=== PATIENT | male | born 1960 | race Caucasian/White ===

== ENCOUNTER 2017-04-24 23:21 | Inpatient (IN) | payer BC, OTHER ==
[2017-04-24] MEDS ORDERED: Ketorolac 30 MG/ML SDV IVPUSH ONE (23:36)
[2017-04-24] MEDS ORDERED: Sodium Chloride 0.9% 1,000 ML IV ONE (23:36)
[2017-04-24] MEDS ORDERED: Sodium Chloride 0.9% 10 ML Syringe FLUSH PRN (23:36)
[2017-04-24] MEDS ORDERED: Ondansetron 4 MG/2 ML SDV IVPUSH ONE (23:36)
[2017-04-24] MEDS ORDERED: Acetaminophen 325 MG Tab PO ONE (23:36)
[2017-04-24] MEDS ORDERED: Sodium Chloride 0.9% 2.5 ML Syringe FLUSH PRN (23:36)
--- NOTE | 2017-04-24 23:40 | EDM.PDOC ---
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 The patient states he has on and off loose stools but the diarrhea is more watery than usual and it's not black or bloody. The patient did not know that he had a fever and has had no chest pain shortness of breath flank pain or urinary issues. The patient states that he felt really run down this morning and that he thought he might be dehydrated so he was pushing fluids all day and was able to tolerate them until a proximally 7 PM when he started having vomiting which he has not been able to stop. The diarrhea started soon thereafter and the pain that he is describing is a deep aching pain on the left side of his abdomen in the mid left abdomen and then radiates. He feels slightly bloated and gassy. He does not take any [id number] medications for his discomfort or the nausea vomiting and diarrhea. He's had no recent travel and 8 no new foods. He has not had any recent antibiotic use. 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 Past medical history: As per history of present illness and as reviewed below otherwise noncontributory. Surgical history: As per history of present illness and as reviewed below otherwise noncontributory. Social history: No reported history of drug or alcohol abuse. Family history: As per history of present illness and as reviewed below otherwise noncontributory. Physical exam: Gen.: Well-developed thin man who is nontoxic and speaks clearly and easily in the ED and moves easily without distress. Vital signs were noted by me. HEENT: Atraumatic, normocephalic, pupils reactive, negative for conjunctival pallor or scleral icterus, mucous membranes moist, throat clear, neck supple, nontender, trachea midline. Lungs: Clear to auscultation, breath sounds equal bilaterally, chest nontender. Heart: S1S2, regular, negative for clicks, rubs, or JVD. Abdomen: Soft, nondistended, nontender. There is tympany on percussion of the abdomen but is not tender on percussion and he has some mild left-sided abdominal pain without rebound or guarding and there are no masses. Negative for masses or hepatosplenomegaly. Negative for costovertebral tenderness. A midline abdominal incision is seen which is well-healed and there is no defects appreciated Pelvis: Stable nontender. Genitourinary: Deferred. Rectal: Deferred. Extremities: Atraumatic, negative for cords or calf pain. Neurovascular unremarkable. Neuro: Awake, alert, oriented. Cranial nerves II through XII unremarkable. Cerebellum unremarkable. Motor and sensory unremarkable throughout. Exam nonfocal. Diagnostics: CBC CMP amylase lipase lactic acid UA urine culture blood cultures CT scan of the abdomen and pelvis Therapeutics: IV fluids Toradol Zofran Tylenol 0130: I discussed all testing results with the patient and with our hospitalist Dr. Alexandra. He will be admitting the patient for his colitis and duodenitis in light of the elevated WBC count and his history of splenectomy. Patient currently is afebrile and feeling much improved but he is aware of the need for IV antibiotics and we will be hanging a dose of vancomycin Levaquin and Flagyl here in the ER. These antibiotic choices were discussed with the hospitalist. Impression: Colitis, inflammatory versus infectious, duodenitis dehydration and history of asplenism Definitive disposition and diagnosis as appropriate pending reevaluation and review of above. Left Middle Abdomen Pain Score (Numeric/FACES): 7 - Related Data Allergies Allergy/AdvReac Type Severity Reaction Status Date / Time Penicillins Allergy Rash Verified 04/24/17 23:31 Home Meds: Home Meds . [No Known Home Meds] 11/07/14 [History] Past Medical History Respiratory History: Reports: PE, Other (See Below) Other Respiratory History: "lots of scar tissue" Gastrointestinal History: Reports: GI Bleed Musculoskeletal History: Reports: Fracture Social & Family History - Family History Family Medical History: Noncontributory - Tobacco Use Smoking Status *Q: Never Smoker - Alcohol Use Days Per Week of Alcohol Use: 0 - Recreational Drug Use Recreational Drug Use: No ED ROS GENERAL - Review of Systems Review Of Systems: ROS reveals no pertinent complaints other than HPI. ED EXAM, GENERAL - Physical Exam Exam: See Below (See dictation) Course - Vital Signs Last Recorded V/S: Last Vital Signs Temp 37.6 C 04/25/17 01:23 Pulse 74 04/25/17 01:23 Resp 14 04/25/17 01:23 BP 112/69 04/25/17 01:23 Pulse Ox 95 04/25/17 01:23 - Orders/Labs/Meds Orders: Active Orders 24 hr Category Date Time Status Patient Status [ADT] Stat ADT 04/25/17 01:36 Ordered Abdomen Pelvis w Cont [CT] Stat Exams 04/24/17 23:36 Taken CULTURE BLOOD [BC] Stat Lab 04/24/17 23:50 Received CULTURE BLOOD [BC] Stat Lab 04/24/17 23:58 Received CULTURE URINE [RM] Stat Lab 04/25/17 00:32 Received Levofloxacin/Dextrose 5%-Water [Levaquin in D5W 500 MG/ Med 04/25/17 01:35 Ordered 100 ML] 500 mg Premix Bag 1 bag IV ONETIME Sodium Chloride 0.9% [Saline Flush] Med 04/24/17 23:36 Active 10 ml FLUSH ASDIRECTED PRN Sodium Chloride 0.9% [Saline Flush] Med 04/24/17 23:36 Active 2.5 ml FLUSH ASDIRECTED PRN Vancomycin [Vancocin] 1 gm Med 04/25/17 01:35 Ordered Sodium Chloride 0.9% [Normal Saline] 250 ml IV ONETIME metroNIDAZOLE/Normal Saline [Flagyl 500 MG in NS 100 ML Med 04/25/17 01:35 Ordered ] 500 mg Premix Bag 1 bag IV ONETIME Blood Culture x2 Reflex Set [OM.PC] Stat Oth 04/24/17 23:36 Ordered Saline Lock Insert [OM.PC] Stat Oth 04/24/17 23:36 Ordered Medication Orders Sodium Chloride (Saline Flush) 10 ml FLUSH ASDIRECTED PRN PRN Reason: Keep Vein Open Sodium Chloride (Saline Flush) 2.5 ml FLUSH ASDIRECTED PRN PRN Reason: Keep Vein Open Labs: Laboratory Tests 04/24/17 04/24/17 04/24/17 Range/Units 23:50 23:50 23:50 WBC 14.60 H (4.0-11.0) K/uL RBC 4.37 L (4.50-5.90) M/uL Hgb 13.2 (13.0-17.0) g/dL Hct 37.4 L (38.0-50.0) % MCV 85.6 (80.0-98.0) fL MCH 30.2 (27.0-32.0) pg MCHC 35.3 (31.0-37.0) g/dL RDW Std Deviation 54.3 (28.0-62.0) fl RDW Coeff of Tawana 17 H (11.0-15.0) % Plt Count 322 (150-400) K/uL MPV 10.30 (7.40-12.00) fL Neut % (Auto) 89.9 H (48.0-80.0) % Lymph % (Auto) 4.5 L (16.0-40.0) % [place] % (Auto) 5.3 (0.0-15.0) % Eos % (Auto) 0.1 (0.0-7.0) % Baso % (Auto) 0.2 (0.0-1.5) % Neut # (Auto) 13.1 H (1.4-5.7) K/uL Lymph # (Auto) 0.7 (0.6-2.4) K/uL [place] # (Auto) 0.8 (0.0-0.8) K/uL Eos # (Auto) 0.0 (0.0-0.7) K/uL Baso # (Auto) 0.0 (0.0-0.1) K/uL Nucleated RBC % 0.0 /100WBC Nucleated RBCs # 0 K/uL Lactate 1.3 (0.20-2.00) mmol/L Sodium 139 (136-146) mmol/L Potassium 3.5 (3.5-5.1) mmol/L Chloride 110 (98-110) mmol/L Carbon Dioxide 21 (21-31) mmol/L BUN 18 (6.0-23.0) mg/dL Creatinine 0.9 (0.6-1.5) mg/dL Est Cr Clr Drug Dosing 103.57 mL/min Estimated GFR (MDRD) > 60.0 ml/min Glucose 117 H (60-110) mg/dL Calcium 8.5 L (8.8-10.8) mg/dL Total Bilirubin 1.5 (0.1-1.5) mg/dL AST 61 H (5-40) IU/L ALT 54 (8-54) IU/L Alkaline Phosphatase 76 (40-150) Total Protein 7.0 (6.0-8.0) g/dL Albumin 3.8 (3.5-5.0) g/dL Globulin 3.2 (2.0-3.5) g/dL Albumin/Globulin Ratio 1.2 L (1.3-2.8) Amylase 35 (10-90) U/L Lipase 41 (7-80) U/L Urine Color Urine Appearance Urine pH (5.0-8.0) Ur Specific [place] (1.001-1.035) Urine Protein (NEGATIVE) mg/dL Urine Glucose (UA) (NEGATIVE) mg/dL Urine Ketones (NEGATIVE) mg/dL Urine Occult Blood (NEGATIVE) Urine Nitrite (NEGATIVE) Urine Bilirubin (NEGATIVE) Urine Urobilinogen (<2.0) EU/dL Ur Leukocyte Esterase (NEGATIVE) Urine RBC (0-2/HPF) Urine WBC (0-5/HPF) Ur Epithelial Cells (NONE-FEW) Urine Bacteria (NEGATIVE) 04/25/17 Range/Units 00:32 WBC (4.0-11.0) K/uL RBC (4.50-5.90) M/uL Hgb (13.0-17.0) g/dL Hct (38.0-50.0) % MCV (80.0-98.0) fL MCH (27.0-32.0) pg MCHC (31.0-37.0) g/dL RDW Std Deviation (28.0-62.0) fl RDW Coeff of Tawana (11.0-15.0) % Plt Count (150-400) K/uL MPV (7.40-12.00) fL Neut % (Auto) (48.0-80.0) % Lymph % (Auto) (16.0-40.0) % [place] % (Auto) (0.0-15.0) % Eos % (Auto) (0.0-7.0) % Baso % (Auto) (0.0-1.5) % Neut # (Auto) (1.4-5.7) K/uL Lymph # (Auto) (0.6-2.4) K/uL [place] # (Auto) (0.0-0.8) K/uL Eos # (Auto) (0.0-0.7) K/uL Baso # (Auto) (0.0-0.1) K/uL Nucleated RBC % /100WBC Nucleated RBCs # K/uL Lactate (0.20-2.00) mmol/L Sodium (136-146) mmol/L Potassium (3.5-5.1) mmol/L Chloride (98-110) mmol/L Carbon Dioxide (21-31) mmol/L BUN (6.0-23.0) mg/dL Creatinine (0.6-1.5) mg/dL Est Cr Clr Drug Dosing mL/min Estimated GFR (MDRD) ml/min Glucose (60-110) mg/dL Calcium (8.8-10.8) mg/dL Total Bilirubin (0.1-1.5) mg/dL AST (5-40) IU/L ALT (8-54) IU/L Alkaline Phosphatase (40-150) Total Protein (6.0-8.0) g/dL Albumin (3.5-5.0) g/dL Globulin (2.0-3.5) g/dL Albumin/Globulin Ratio (1.3-2.8) Amylase (10-90) U/L Lipase (7-80) U/L Urine Color YELLOW Urine Appearance CLEAR Urine pH 5.0 (5.0-8.0) Ur Specific [place] >= 1.030 (1.001-1.035) Urine Protein NEGATIVE (NEGATIVE) mg/dL Urine Glucose (UA) NEGATIVE (NEGATIVE) mg/dL Urine Ketones NEGATIVE (NEGATIVE) mg/dL Urine Occult Blood NEGATIVE (NEGATIVE) Urine Nitrite NEGATIVE (NEGATIVE) Urine Bilirubin NEGATIVE (NEGATIVE) Urine Urobilinogen 0.2 (<2.0) EU/dL Ur Leukocyte Esterase NEGATIVE (NEGATIVE) Urine RBC 0-2 (0-2/HPF) Urine WBC 0-1 (0-5/HPF) Ur Epithelial Cells RARE (NONE-FEW) Urine Bacteria RARE (NEGATIVE) Meds: Medications Generic Name Dose Route Start Last Admin Trade Name Freq PRN Reason Stop Dose Admin Sodium Chloride 10 ml 04/24/17 23:36 Saline Flush FLUSH ASDIRECTED PRN Keep Vein Open Sodium Chloride 2.5 ml 04/24/17 23:36 Saline Flush FLUSH ASDIRECTED PRN Keep Vein Open Discontinued Medications Generic Name Dose Route Start Last Admin Trade Name Magy PRN Reason Stop Dose Admin Acetaminophen 650 mg 04/24/17 23:36 04/24/17 23:54 Tylenol PO 04/24/17 23:37 650 mg NOW ONE Administration Sodium Chloride 1,000 mls @ 999 mls/hr 04/24/17 23:36 04/24/17 23:54 Normal Saline IV 04/25/17 00:36 999 mls/hr STAT ONE Administration Sodium Chloride 1,000 mls @ 999 mls/hr 04/25/17 00:30 04/25/17 00:35 Normal Saline IV 04/25/17 01:30 999 mls/hr STAT ONE Administration Iopamidol 100 ml 04/25/17 01:04 04/25/17 01:05 Isovue-370 (76%) IVPUSH 04/25/17 01:05 100 ml ONETIME STA Administration Ketorolac Tromethamine 30 mg 04/24/17 23:36 04/24/17 23:54 Toradol IVPUSH 04/24/17 23:37 30 mg ONETIME ONE Administration Ondansetron HCl 4 mg 04/24/17 23:36 04/24/17 23:54 Zofran IVPUSH 04/24/17 23:37 4 mg ONETIME ONE Administration Departure - Departure Time of Disposition: 01:39 Disposition: Admitted As Inpatient 67 Condition: Good Clinical Impression: Colitis, Asplenia - Discharge Information Forms: ED Department Discharge - My Orders Last 24 Hours: My Active Orders 04/24/17 23:36 Abdomen Pelvis w Cont [CT] Stat Sodium Chloride 0.9% [Saline Flush] 10 ml FLUSH ASDIRECTED PRN Sodium Chloride 0.9% [Saline Flush] 2.5 ml FLUSH ASDIRECTED PRN Blood Culture x2 Reflex Set [OM.PC] Stat Saline Lock Insert [OM.PC] Stat 04/24/17 23:50 CULTURE BLOOD [BC] Stat 04/24/17 23:58 CULTURE BLOOD [BC] Stat 04/25/17 00:32 CULTURE URINE [RM] Stat 04/25/17 01:35 Levofloxacin/Dextrose 5%-Water [Levaquin in D5W 500 MG/100 ML] 500 mg Premix Bag 1 bag IV ONETIME Vancomycin [Vancocin] 1 gm Sodium Chloride 0.9% [Normal Saline] 250 ml IV ONETIME metroNIDAZOLE/Normal Saline [Flagyl 500 MG in NS 100 ML] 500 mg Premix Bag 1 bag IV ONETIME 04/25/17 01:36 Patient Status [ADT] Stat - Assessment/Plan Last 24 Hours: My Active Orders 04/24/17 23:36 Abdomen Pelvis w Cont [CT] Stat Sodium Chloride 0.9% [Saline Flush] 10 ml FLUSH ASDIRECTED PRN Sodium Chloride 0.9% [Saline Flush] 2.5 ml FLUSH ASDIRECTED PRN Blood Culture x2 Reflex Set [OM.PC] Stat Saline Lock Insert [OM.PC] Stat 04/24/17 23:50 CULTURE BLOOD [BC] Stat 04/24/17 23:58 CULTURE BLOOD [BC] Stat 04/25/17 00:32 CULTURE URINE [RM] Stat 04/25/17 01:35 Levofloxacin/Dextrose 5%-Water [Levaquin in D5W 500 MG/100 ML] 500 mg Premix Bag 1 bag IV ONETIME Vancomycin [Vancocin] 1 gm Sodium Chloride 0.9% [Normal Saline] 250 ml IV ONETIME metroNIDAZOLE/Normal Saline [Flagyl 500 MG in NS 100 ML] 500 mg Premix Bag 1 bag IV ONETIME 04/25/17 01:36 Patient Status [ADT] Stat
[2017-04-25] MEDS ORDERED: Sodium Chloride 0.9% 1,000 ML IV ONE (00:30)
[2017-04-25 00:33] LABS: CHLORIDE,CL 110 mmol/L (98-110); SODIUM,NA 139 mmol/L (136-146)
[2017-04-25] MEDS ORDERED: Iopamidol 755 Mg/ML 100 ML Bottle IVPUSH STA (01:04)
[2017-04-25] MEDS ORDERED: Levofloxacin/Dextrose 5%-Water 500 MG in Premix Bag 1 BAG IV ONE (01:35)
[2017-04-25] MEDS ORDERED: metroNIDAZOLE/Normal Saline 500 MG in Premix Bag 1 BAG IV ONE (01:35)
[2017-04-25] MEDS ORDERED: Morphine 2 MG/ML Syringe IVPUSH ONE (01:49)
[2017-04-25] MEDS ORDERED: Ondansetron 4 MG/2 ML SDV IVPUSH PRN (03:39)
[2017-04-25] MEDS ORDERED: Sodium Chloride 0.9% 1,000 ML IV SCH (03:45)
[2017-04-25] MEDS: HYDROmorphone 1 MG/ML Syringe IVPUSH PRN ×5 (03:50→22:21)
[2017-04-25] MEDS: metroNIDAZOLE/Normal Saline 500 MG in Premix Bag 1 BAG IV SCH ×4 (05:01→22:22)
--- NOTE | 2017-04-25 09:30 | PCM.HP ---
H&P History of Present Illness - General Date of Service: 04/25/17 Admit Problem/Dx: Admission Diagnosis/Problem Admission Diagnosis/Problem Colitis Source of Information: Patient - History of Present Illness Initial Comments - Free Text/Narative: 57 yo with history of splectomy admitted for colitis and duodenitis. He has been episodes of n/v/d loose stool along with left sided abdominal pain at work. He felt run down and fatigued. He tried drinking fluids but felt too weak. He does not c/o of fever, chills, chest pain, palpitations or other pertiennt symptoms. He has not travelled anywhere or ate anything unusual. Left Middle Abdomen Pain Score (Numeric/FACES): 7 - Related Data Allergies/Adverse Reactions: Allergies Allergy/AdvReac Type Severity Reaction Status Date / Time Penicillins Allergy Rash Verified 04/24/17 23:31 Home Medications: Home Meds . [No Known Home Meds] 11/07/14 [History] Past Medical History HEENT History: Reports: Impaired Vision Other HEENT History: wears glasses Respiratory History: Reports: PE, Other (See Below) Other Respiratory History: "lots of scar tissue" Gastrointestinal History: Reports: GI Bleed Musculoskeletal History: Reports: Fracture Other Musculoskeletal History: right hand fracture - Infectious Disease History Infectious Disease History: Reports: Chicken Pox, Measles - Past Surgical History HEENT Surgical History: Reports: None Social & Family History - Family History Family Medical History: Noncontributory Endocrine/Metabolic: Reports: Diabetes, type II Oncologic: Reports: Colon, Other (See Below) Other Oncologic Family History: Father of colon cancer - Tobacco Use Smoking Status *Q: Never Smoker Second Hand Smoke Exposure: Yes - Caffeine Use Caffeine Use: Reports: Coffee Caffeine Use Comment: 2-3cups/day - Alcohol Use Days Per Week of Alcohol Use: 0 - Recreational Drug Use Recreational Drug Use: No H&P Review of Systems - Review of Systems: Review Of Systems: See Below General: Reports: No Symptoms HEENT: Reports: No Symptoms Pulmonary: Reports: No Symptoms Cardiovascular: Reports: No Symptoms Gastrointestinal: Reports: Abdominal Pain Genitourinary: Reports: No Symptoms Musculoskeletal: Reports: No Symptoms Skin: Reports: No Symptoms Psychiatric: Reports: No Symptoms, Suicidal Ideation Hematologic/Lymphatic: Reports: No Symptoms Exam - Exam Exam: See Below - Vital Signs Vital Signs: Last Vital Signs Temp 99.7 F 04/25/17 08:46 Pulse 77 04/25/17 08:46 Resp 18 04/25/17 08:46 BP 116/70 04/25/17 08:46 Pulse Ox 94 L 04/25/17 08:46 Weight: 82.5 kg - Exam General: Alert, Oriented HEENT: Conjunctiva Clear, EOMI, Hearing Intact Neck: Supple, Trachea Midline Lungs: Clear to Auscultation, Normal Respiratory Effort Cardiovascular: Regular Rate, Regular Rhythm Abdomen: Soft, Hyperactive Bowel Sounds Back Exam: Normal Inspection, Full Range of Motion - Patient Data Result Diagrams: 04/24/17 23:50 04/24/17 23:50 *Q Meaningful Use (ADM) - VTE *Q VTE Criteria *Q: - Stroke *Q Stroke Criteria *Q: - AMI *Q AMI Criteria *Q: Problem List Initiated/Reviewed/Updated: Yes Orders Last 24hrs: Active Orders 24 hr Category Date Time Status Patient Status [ADT] Stat ADT 04/25/17 01:36 Active Regular Diet [DIET] Diet 04/25/17 Breakfast Active CBC WITH AUTO DIFF [HEME] Routine Lab 04/26/17 05:00 Ordered CMP [COMPREHENSIVE METABOLIC PN,CMP] [CHEM] Routine Lab 04/26/17 05:00 Ordered VANCOMYCIN TROUGH [CHEM] Timed Lab 04/26/17 08:30 Ordered HYDROmorphone [Dilaudid] Med 04/25/17 03:38 Active 1 mg IVPUSH Q2H PRN Levofloxacin/Dextrose 5%-Water [Levaquin in D5W 500 MG/ Med 04/26/17 01:30 Active 100 ML] 500 mg Premix Bag 1 bag IV Q24H Ondansetron [Zofran] Med 04/25/17 03:39 Active 4 mg IVPUSH Q4H PRN Sodium Chloride 0.9% [Normal Saline] 1,000 ml Med 04/25/17 03:45 Active IV ASDIRECTED Vancomycin Pharmacy to Dose [Pharmacy to Dose - Med 04/25/17 03:45 Active Vancomycin] 1 dose .XX ASDIRECTED Vancomycin [Vancocin] 1 gm Med 04/25/17 09:30 Active Sodium Chloride 0.9% [Normal Saline] 250 ml IV Q8H metroNIDAZOLE/Normal Saline [Flagyl 500 MG in NS 100 ML Med 04/25/17 04:30 Active ] 500 mg Premix Bag 1 bag IV Q6H Medication Orders Hydromorphone HCl (Dilaudid) 1 mg IVPUSH Q2H PRN PRN Reason: Pain Last Admin: 04/25/17 03:50 Dose: 1 mg Levofloxacin/Dextrose 500 mg/ (Premix) 100 mls @ 100 mls/hr IV Q24H [facility] Metronidazole 500 mg/ Premix 100 mls @ 100 mls/hr IV Q6H [facility] Last Admin: 04/25/17 05:01 Dose: 100 mls/hr Sodium Chloride (Normal Saline) 1,000 mls @ 100 mls/hr IV ASDIRECTED [facility] Vancomycin HCl 1 gm/ Sodium (Chloride) 250 mls @ 166.667 mls/hr IV Q8H [facility] Last Admin: 04/25/17 09:19 Dose: 166.667 mls/hr Ondansetron HCl (Zofran) 4 mg IVPUSH Q4H PRN PRN Reason: Nausea/Vomiting Sodium Chloride (Saline Flush) 10 ml FLUSH ASDIRECTED PRN PRN Reason: Keep Vein Open Sodium Chloride (Saline Flush) 2.5 ml FLUSH ASDIRECTED PRN PRN Reason: Keep Vein Open Vancomycin HCl (Pharmacy To Dose - Vancomycin) 1 dose .XX ASDIRECTED [facility] Assessment/Plan Comment:: 57 yo male with history of asplenectomy admitted for colitis and duodenitis 2 blood cx positive for anerobic + gm cocci in pairs and chains. On flagyl, vanco, levaquin continue IVF
[2017-04-26] MEDS ORDERED: Levofloxacin/Dextrose 5%-Water 500 MG in Premix Bag 1 BAG IV SCH (01:30)
[2017-04-26] MEDS: HYDROmorphone 1 MG/ML Syringe IVPUSH PRN ×2 (04:34→20:25)
[2017-04-26] MEDS: metroNIDAZOLE/Normal Saline 500 MG in Premix Bag 1 BAG IV SCH ×2 (04:37→09:44)
[2017-04-26 09:05] LABS: CHLORIDE,CL 109 mmol/L (98-110); SODIUM,NA 138 mmol/L (136-146)
--- NOTE | 2017-04-26 12:50 | PCM.PN ---
- General Info Date of Service: 04/26/17 - Review of Systems Systems Review Comment:: his abdominal pain has resolved. - Patient Data Vitals - most recent: Last Vital Signs Temp 98.2 F 04/26/17 00:00 Pulse 63 04/26/17 07:53 Resp 14 04/26/17 07:53 BP 104/70 04/26/17 07:53 Pulse Ox 95 04/26/17 07:53 Weight - most recent: 82.5 kg I&O - last 24 hours: Intake & Output 04/25/17 04/26/17 04/26/17 22:59 06:59 14:59 Intake Total 750 450 100 Output Total 850 Balance -100 450 100 Lab Results last 24 hrs: Laboratory Results - last 24 hr 04/26/17 04/26/17 04/26/17 Range/Units 08:33 08:33 08:33 WBC 13.04 H (4.0-11.0) K/uL RBC 4.11 L (4.50-5.90) M/uL Hgb 12.0 L (13.0-17.0) g/dL Hct 35.6 L (38.0-50.0) % MCV 86.6 (80.0-98.0) fL MCH 29.2 (27.0-32.0) pg MCHC 33.7 (31.0-37.0) g/dL RDW Std Deviation 57.5 (28.0-62.0) fl RDW Coeff of Tawana 18 H (11.0-15.0) % Plt Count 295 (150-400) K/uL MPV 10.40 (7.40-12.00) fL Neut % (Auto) 77.5 (48.0-80.0) % Lymph % (Auto) 13.8 L (16.0-40.0) % [place] % (Auto) 6.8 (0.0-15.0) % Eos % (Auto) 1.6 (0.0-7.0) % Baso % (Auto) 0.3 (0.0-1.5) % Neut # (Auto) 10.1 H (1.4-5.7) K/uL Lymph # (Auto) 1.8 (0.6-2.4) K/uL [place] # (Auto) 0.9 H (0.0-0.8) K/uL Eos # (Auto) 0.2 (0.0-0.7) K/uL Baso # (Auto) 0.0 (0.0-0.1) K/uL Nucleated RBC % 0.0 /100WBC Nucleated RBCs # 0 K/uL Sodium 138 (136-146) mmol/L Potassium 3.8 (3.5-5.1) mmol/L Chloride 109 (98-110) mmol/L Carbon Dioxide 23 (21-31) mmol/L BUN 14 (6.0-23.0) mg/dL Creatinine 0.7 (0.6-1.5) mg/dL Est Cr Clr Drug Dosing 129.33 mL/min Estimated GFR (MDRD) > 60.0 ml/min Glucose 97 (60-110) mg/dL Calcium 7.8 L (8.8-10.8) mg/dL Total Bilirubin 0.7 (0.1-1.5) mg/dL AST 51 H (5-40) IU/L ALT 60 H (8-54) IU/L Alkaline Phosphatase 61 (40-150) Total Protein 5.6 L (6.0-8.0) g/dL Albumin 2.9 L (3.5-5.0) g/dL Globulin 2.7 (2.0-3.5) g/dL Albumin/Globulin Ratio 1.1 L (1.3-2.8) Vancomycin Trough 11.8 (5-15) ug/mL Med Orders - Current: Current Medications Hydromorphone HCl (Dilaudid) 1 mg IVPUSH Q2H PRN PRN Reason: Pain Last Admin: 04/26/17 04:34 Dose: 1 mg Sodium Chloride (Normal Saline) 1,000 mls @ 100 mls/hr IV ASDIRECTED [facility] Last Admin: 04/25/17 20:41 Dose: 100 mls/hr Vancomycin HCl 1 gm/ Sodium (Chloride) 250 mls @ 166.667 mls/hr IV Q8H [facility] Last Admin: 04/26/17 10:48 Dose: 166.667 mls/hr Ondansetron HCl (Zofran) 4 mg IVPUSH Q4H PRN PRN Reason: Nausea/Vomiting Sodium Chloride (Saline Flush) 10 ml FLUSH ASDIRECTED PRN PRN Reason: Keep Vein Open Sodium Chloride (Saline Flush) 2.5 ml FLUSH ASDIRECTED PRN PRN Reason: Keep Vein Open Vancomycin HCl (Pharmacy To Dose - Vancomycin) 1 dose .XX ASDIRECTED [facility] Discontinued Medications Acetaminophen (Tylenol) 650 mg PO NOW ONE Stop: 04/24/17 23:37 Last Admin: 04/24/17 23:54 Dose: 650 mg Sodium Chloride (Normal Saline) 1,000 mls @ 999 mls/hr IV STAT ONE Stop: 04/25/17 00:36 Last Admin: 04/24/17 23:54 Dose: 999 mls/hr Sodium Chloride (Normal Saline) 1,000 mls @ 999 mls/hr IV STAT ONE Stop: 04/25/17 01:30 Last Admin: 04/25/17 00:35 Dose: 999 mls/hr Levofloxacin/Dextrose 500 mg/ (Premix) 100 mls @ 100 mls/hr IV ONETIME ONE Stop: 04/25/17 02:34 Last Admin: 04/25/17 03:30 Dose: 100 mls/hr Vancomycin HCl 1 gm/ Sodium (Chloride) 250 mls @ 250 mls/hr IV ONETIME ONE Stop: 04/25/17 02:34 Last Admin: 04/25/17 01:45 Dose: 250 mls/hr Metronidazole 500 mg/ Premix 100 mls @ 100 mls/hr IV ONETIME ONE Stop: 04/25/17 02:34 Last Admin: 04/25/17 06:09 Dose: Not Given Levofloxacin/Dextrose 500 mg/ (Premix) 100 mls @ 100 mls/hr IV Q24H [facility] Last Admin: 04/26/17 01:08 Dose: 100 mls/hr Metronidazole 500 mg/ Premix 100 mls @ 100 mls/hr IV Q6H [facility] Last Admin: 04/26/17 09:44 Dose: 100 mls/hr Vancomycin HCl 1,250 mg/ (Dextrose/Water) 250 mls @ 166.667 mls/hr IV Q12H [facility] Iopamidol (Isovue-370 (76%)) 100 ml IVPUSH ONETIME STA Stop: 04/25/17 01:05 Last Admin: 04/25/17 01:05 Dose: 100 ml Ketorolac Tromethamine (Toradol) 30 mg IVPUSH ONETIME ONE Stop: 04/24/17 23:37 Last Admin: 04/24/17 23:54 Dose: 30 mg Morphine Sulfate (Morphine) 2 mg IVPUSH ONETIME ONE Stop: 04/25/17 01:50 Last Admin: 04/25/17 01:58 Dose: 2 mg Ondansetron HCl (Zofran) 4 mg IVPUSH ONETIME ONE Stop: 04/24/17 23:37 Last Admin: 04/24/17 23:54 Dose: 4 mg - Exam General: alert, oriented Neck: trachea midline Lungs: Clear to auscultation, Normal respiratory effort Cardiovascular: Regular Rate, Regular Rhythm Abdomen: soft, no tenderness Extremities: no edema - Problem List & Annotations (1) Bacteremia due to group B Streptococcus SNOMED Code(s): 143566109495, 593917351859 Code(s): R78.81 - BACTEREMIA Status: Acute Current Visit: Yes (2) Asplenia SNOMED Code(s): 809814821, 664117533 Code(s): Q89.01 - ASPLENIA (CONGENITAL) Status: Acute Current Visit: Yes (3) Colitis SNOMED Code(s): 95969041 Code(s): K52.9 - NONINFECTIVE GASTROENTERITIS AND COLITIS, UNSPECIFIED Status: Acute Current Visit: Yes - Problem List Review Problem List Initiated/Reviewed/Updated: Yes - My Orders Last 24 Hours: My Active Orders 04/25/17 15:10 Code Status [Resuscitation Status] Routine 04/26/17 12:18 CULTURE BLOOD [BC] Stat CULTURE BLOOD [BC] Stat Blood Culture x2 Reflex Set [OM.PC] Stat 04/27/17 05:11 CBC WITH AUTO DIFF [HEME] AM COMPREHENSIVE METABOLIC PN,CMP [CHEM] AM HEPATITIS PANEL, ACUTE [REF] AM 04/27/17 07:00 Abdomen Ltd [US] Routine Echo 2D wo Cont [US] Urgent 04/28/17 08:30 VANCOMYCIN TROUGH [CHEM] Routine - Plan Plan:: 57 yo male with history of asplenectomy admitted for colitis and duodenitis 2 blood cx positive for anerobic + gm cocci in pairs and chains. On flagyl, vanco, levaquin continue IVF 04/26/2017 Will discontinue levaquin. Continue vancomycin. He reports allergy to penicillin he states more than 5 years since last pneumococcal vaccine transthoracic echo ordered. He is unsure of pneumococcal vaccine. Will inquire of infectious disease regarding : duration of antibiotics consideration of prophylactic antibiotics immunization recommendations: pneumococcal 23 and 13 ; H flu; menactra ( quadrivalent meningococcal vaccine) Cirilo Alexandra MD
--- NOTE | 2017-04-26 12:59 | PCM.SN ---
- Free Text/Narrative Note: abdominal ultrasound and hep panel ordered because of slight elevation in LFT's Cirilo Alexandra MD
[2017-04-27 05:00] VITALS: BP 136/84
[2017-04-27 06:41] LABS: CHLORIDE,CL 111 mmol/L (98-110); SODIUM,NA 140 mmol/L (136-146)
[2017-04-27] MEDS ORDERED: Levofloxacin/Dextrose 5%-Water 750 MG in Premix Bag 1 BAG IV SCH (10:00)
--- NOTE | 2017-04-27 10:22 | PCM.DCSUM1 ---
Discharge Summary - Hospital Course Free Text/Narrative:: 57 yo male with history of splenectomy admitted for GRP B strep on blood culture and colitis/duodenitis evident on CT. He had left sided abdominal pain , nausea, diarrhea loose stools. He was not able to keep anything down. He was intially started on flagyl, levaquin and vancomycin. His diarrhea has subsided. He was able to tolerate oral intake. ID in [place] was consulted regarding home antibiotics and duration of treatement. He was discharged with keflex 1 gram QID x 10 days which was sensitive to group B strep. He was given pneumovax 23. He is to follow up Dr. Brooke in clinic and Dr. Felix in [place]. - Discharge Data Discharge Date: 04/27/17 Discharge Disposition: Home, Self-Care 01 Condition: Fair - Patient Instructions Diet: Regular Diet as Tolerated Activity: As Tolerated Driving: May Drive Today Showering/Bathing: May Shower Notify Provider of: Fever, Increased Pain, Swelling and Redness, Drainage, Nausea and/or Vomiting - Discharge Plan Prescriptions/Med Rec: Cephalexin [Keflex] 500 mg PO Q6HR #80 cap Home Medications: Home Meds Cephalexin [Keflex] 500 mg PO Q6HR #80 cap 04/27/17 [Rx] Patient Handouts: Cephalexin tablets or capsules, Duodenitis, Colitis, Bacteremia - General Info Date of Service: 04/27/17 - Review of Systems General: Reports: No Symptoms HEENT: Reports: no symptoms Pulmonary: Reports: no symptoms Cardiovascular: Reports: No Symptoms Gastrointestinal: Reports: No symptoms Genitourinary: Reports: no symptoms Musculoskeletal: Reports: no symptoms Skin: Reports: no symptoms Neurological: Reports: No Symptoms Psychiatric: Reports: no symptoms - Patient Data Vitals - Most Recent: Last Vital Signs Temp 97.8 F 04/27/17 05:00 Pulse 557 H 04/27/17 05:00 Resp 18 04/27/17 05:00 BP 136/84 04/27/17 05:00 Pulse Ox 94 L 04/27/17 05:00 Weight - Most Recent: 82.5 kg I&O - Last 24 hours: Intake & Output 04/26/17 04/27/17 04/27/17 22:59 06:59 14:59 Intake Total 710 1200 Output Total 2200 400 Balance -1490 800 Lab Results - Last 24 hrs: Laboratory Results - last 24 hr 04/27/17 04/27/17 Range/Units 05:43 05:43 WBC 7.51 (4.0-11.0) K/uL RBC 4.30 L (4.50-5.90) M/uL Hgb 12.8 L (13.0-17.0) g/dL Hct 37.0 L (38.0-50.0) % MCV 86.0 (80.0-98.0) fL MCH 29.8 (27.0-32.0) pg MCHC 34.6 (31.0-37.0) g/dL RDW Std Deviation 57.7 (28.0-62.0) fl RDW Coeff of Tawana 19 H (11.0-15.0) % Plt Count 329 (150-400) K/uL MPV 11.20 (7.40-12.00) fL Neut % (Auto) 55.1 (48.0-80.0) % Lymph % (Auto) 23.4 (16.0-40.0) % [place] % (Auto) 16.5 H (0.0-15.0) % Eos % (Auto) 3.7 (0.0-7.0) % Baso % (Auto) 1.3 (0.0-1.5) % Neut # (Auto) 4.1 (1.4-5.7) K/uL Lymph # (Auto) 1.8 (0.6-2.4) K/uL [place] # (Auto) 1.2 H (0.0-0.8) K/uL Eos # (Auto) 0.3 (0.0-0.7) K/uL Baso # (Auto) 0.1 (0.0-0.1) K/uL Nucleated RBC % 0.0 /100WBC Nucleated RBCs # 0 K/uL Sodium 140 (136-146) mmol/L Potassium 3.8 (3.5-5.1) mmol/L Chloride 111 H (98-110) mmol/L Carbon Dioxide 24 (21-31) mmol/L BUN 11 (6.0-23.0) mg/dL Creatinine 0.7 (0.6-1.5) mg/dL Est Cr Clr Drug Dosing 129.33 mL/min Estimated GFR (MDRD) > 60.0 ml/min Glucose 94 (60-110) mg/dL Calcium 8.3 L (8.8-10.8) mg/dL Total Bilirubin 0.6 (0.1-1.5) mg/dL AST 38 (5-40) IU/L ALT 53 (8-54) IU/L Alkaline Phosphatase 66 (40-150) Total Protein 6.0 (6.0-8.0) g/dL Albumin 3.1 L (3.5-5.0) g/dL Globulin 2.9 (2.0-3.5) g/dL Albumin/Globulin Ratio 1.1 L (1.3-2.8) Med Orders - Current: Current Medications Hydromorphone HCl (Dilaudid) 1 mg IVPUSH Q2H PRN PRN Reason: Pain Last Admin: 04/26/17 20:25 Dose: 1 mg Levofloxacin/Dextrose 750 mg/ (Premix) 150 mls @ 100 mls/hr IV Q24H [facility] Last Admin: 04/27/17 10:12 Dose: 100 mls/hr Ondansetron HCl (Zofran) 4 mg IVPUSH Q4H PRN PRN Reason: Nausea/Vomiting Sodium Chloride (Saline Flush) 10 ml FLUSH ASDIRECTED PRN PRN Reason: Keep Vein Open Sodium Chloride (Saline Flush) 2.5 ml FLUSH ASDIRECTED PRN PRN Reason: Keep Vein Open Discontinued Medications Acetaminophen (Tylenol) 650 mg PO NOW ONE Stop: 04/24/17 23:37 Last Admin: 04/24/17 23:54 Dose: 650 mg Sodium Chloride (Normal Saline) 1,000 mls @ 999 mls/hr IV STAT ONE Stop: 04/25/17 00:36 Last Admin: 04/24/17 23:54 Dose: 999 mls/hr Sodium Chloride (Normal Saline) 1,000 mls @ 999 mls/hr IV STAT ONE Stop: 04/25/17 01:30 Last Admin: 04/25/17 00:35 Dose: 999 mls/hr Levofloxacin/Dextrose 500 mg/ (Premix) 100 mls @ 100 mls/hr IV ONETIME ONE Stop: 04/25/17 02:34 Last Admin: 04/25/17 03:30 Dose: 100 mls/hr Vancomycin HCl 1 gm/ Sodium (Chloride) 250 mls @ 250 mls/hr IV ONETIME ONE Stop: 04/25/17 02:34 Last Admin: 04/25/17 01:45 Dose: 250 mls/hr Metronidazole 500 mg/ Premix 100 mls @ 100 mls/hr IV ONETIME ONE Stop: 04/25/17 02:34 Last Admin: 04/25/17 06:09 Dose: Not Given Levofloxacin/Dextrose 500 mg/ (Premix) 100 mls @ 100 mls/hr IV Q24H [facility] Last Admin: 04/26/17 01:08 Dose: 100 mls/hr Metronidazole 500 mg/ Premix 100 mls @ 100 mls/hr IV Q6H [facility] Last Admin: 04/26/17 09:44 Dose: 100 mls/hr Sodium Chloride (Normal Saline) 1,000 mls @ 100 mls/hr IV ASDIRECTED [facility] Last Admin: 04/25/17 20:41 Dose: 100 mls/hr Vancomycin HCl 1,250 mg/ (Dextrose/Water) 250 mls @ 166.667 mls/hr IV Q12H [facility] Vancomycin HCl 1 gm/ Sodium (Chloride) 250 mls @ 166.667 mls/hr IV Q8H [facility] Last Admin: 04/27/17 10:04 Dose: Not Given Iopamidol (Isovue-370 (76%)) 100 ml IVPUSH ONETIME STA Stop: 04/25/17 01:05 Last Admin: 04/25/17 01:05 Dose: 100 ml Ketorolac Tromethamine (Toradol) 30 mg IVPUSH ONETIME ONE Stop: 04/24/17 23:37 Last Admin: 04/24/17 23:54 Dose: 30 mg Morphine Sulfate (Morphine) 2 mg IVPUSH ONETIME ONE Stop: 04/25/17 01:50 Last Admin: 04/25/17 01:58 Dose: 2 mg Ondansetron HCl (Zofran) 4 mg IVPUSH ONETIME ONE Stop: 04/24/17 23:37 Last Admin: 04/24/17 23:54 Dose: 4 mg Vancomycin HCl (Pharmacy To Dose - Vancomycin) 1 dose .XX ASDIRECTED [facility] - Exam General: Reports: alert, oriented, cooperative HEENT: Reports: Pupils equal, EOMI Lungs: Reports: Clear to auscultation, Normal respiratory effort Cardiovascular: Reports: Regular Rate, Regular Rhythm Abdomen: Reports: bowel sounds present, soft, no tenderness Back Exam: Reports: Normal Inspection, Full Range of Motion Extremities: Reports: no edema Skin: Reports: warm, dry, intact Neurological: Reports: no new focal deficit Psy/Mental Status: Reports: alert, normal affect, normal mood *Q Meaningful Use (DIS) - VTE *Q VTE Criteria *Q: - Stroke *Q Stroke Criteria *Q: - AMI *Q AMI Criteria *Q:
[2017-04-27] MEDS ORDERED: Pneumococcal Polyvalent-23 Vaccine 0.5 ML SDV IM ONE (10:30)
--- NOTE | 2017-04-27 10:47 | US ---
EXAMINATION: Right upper quadrant ultrasound HISTORY: Elevated liver enzymes COMPARISON: CT dated 04/25/2017 TECHNIQUE: Grayscale and color Doppler images obtained of the right upper quadrant. FINDINGS: The pancreas is not visualized. Liver appears grossly normal in contour and echogenicity w ithout a focal hepatic mass. Small bilateral pleural effusions noted. The gallbladder wall thickness is normal. No pericholecystic fluid or shadowing gallstones. There is a trace of abdominal ascites. Right kidney measures 12.5 cm [id number] without evidence of hydronephrosis. The common bile duct measures 4 mm. Negative sonographic El sign. IMPRESSION: 1. Liver appears grossly normal in contour and echotexture. 2. Small pleural effusions and trace abdominal ascites. 3. Evaluation of the recent CT for comparison demonstrates a focal area of stenosis within the commo n bile duct just inferior to the cystic duct with moderate prominence of the common hepatic duct and intrahepatic biliary ducts. Correlation with MRCP may be beneficial to rule out common bile duct pa thology.
--- NOTE | 2017-04-27 11:09 | CT ---
EXAM DATE: 04/25/17 PATIENT'S AGE: 57 Patient: MASHA MONTGOMERY Facility: [place], [place] Site . Site : [id number] Study: CT Abdomen/Pelvis W SHIVAM [id number]/15/2017 1:08:09 AM Ordering Physician: Sergio Forte Final Report: INDICATION: Abdominal pain with diarrhea and vomiting since yesterday. History of splenectomy and appendectomy. TECHNIQUE: CT abdomen and pelvis acquired with i.v. 100 mL Isovue 370. Coronal and sagittal reformats were obtained. 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 Lower chest: Unremarkable. Liver: No focal liver lesion. Spleen: Surgically absent. Pancreas: No pancreatic mass. Main pancreatic duct is normal in caliber. Gallbladder and bile ducts: Mild degree of intrahepatic and extrahepatic biliary dilatation. No evidence of acute cholecystitis or radiopaque gallstones. Kidneys: Small right renal cysts. No hydronephrosis or renal mass. Adrenal glands: Unremarkable. GI tract: Unremarkable. A moderate hiatal hernia. Mild inflammatory changes involving the duodenum. No underlying bowel obstruction. Abnormal thickening of the ascending colonic wall with adjacent fluid. No perforation or abscess. Remainder of large bowel unremarkable. No additional segment of abnormal colonic wall thickening. Vascular: For abdominal aorta normal in caliber. Origins of the celiac artery and SMA are patent. Mild degree of mesenteric vascular congestion. No abnormal twisting of the mesenteric vessels. Iliac veins and IVC are patent. Portal vein branches are difficult to delineate, attenuated appearance. Lymph nodes: Unremarkable. Miscellaneous: No free air or abscess. Multiple mesenteric venous collaterals. Pelvic Organs: Unremarkable. Bones: Unremarkable for age. IMPRESSION: 1. Abnormal CT. Likely infectious or inflammatory colitis involving the ascending colon. 2. Possible secondary inflammatory process involving proximal and transverse duodenum. 3. No perforation or abscess. 4. Extensive mesenteric venous collaterals with difficult visualization of the portal vein and portal vein branches, consider chronic thrombosis. SMV also difficult to delineate. 5. Hiatal hernia. Dictated by Cirilo Fallon MD @ 04/25/2017 1:22:42 AM Dictated by: Cirilo Fallon MD @ 04/25/2017 01:22:49 (Electronic Signature) Report Signed by Proxy. [email or web address]
--- NOTE | 2017-04-28 14:37 | ECHO ---
EXAM DATE: 04/25/17 PATIENT'S AGE: 57 The echocardiogram report can be seen in this patient's EMR (Electronic Medical Record) in the Reports section. The report has also been scanned into PACS. [employer]
== END 2017-04-27 14:45 | disposition home or self-care (01) | DRG 249 ==
LOC: MW.ED 23:21 → MW.MS 04-25 00:36
PROVIDERS: ADMIT Family Medicine; ATTEND Family Medicine
PROC: 3E0234Z Introduction of Serum, Toxoid and Vaccine into Muscle, Percutaneous Approach (ICD-10-PCS; principal; 2017-04-27)
DX: K52.9 Noninfective gastroenteritis and colitis, unspecified (principal); K29.80 Duodenitis without bleeding; R78.81 Bacteremia; B95.1 Streptococcus, group B, as the cause of diseases classified elsewhere; R79.89 Other specified abnormal findings of blood chemistry; Z88.0 Allergy status to penicillin; Z90.81 Acquired absence of spleen; Z23 Encounter for immunization
CPT/HCPCS: 36415; 74177; 74177-26; 76705; 76705-26; 80053; 80202; 81001; 82150; 83605; 83690; 85025; 87040; 87077; 87086; 87186; 90732; 93306; 96361; 96374; 96375; 99284; 99285-25; A9270-GY; G0009; J1170; J1885; J1956; J2270; J2405; J3370; J7040; J7050; Q9967

== ENCOUNTER 2017-05-18 10:19 | Emergency (ER) | payer BC, OTHER ==
[2017-05-18] MEDS ORDERED: Aspirin 81 MG Tab.Chew PO ONE (10:26)
[2017-05-18] MEDS ORDERED: Famotidine 20 MG/2 ML SDV IVPUSH ONE (10:26)
[2017-05-18] MEDS ORDERED: Ketorolac 30 MG/ML SDV IVPUSH ONE ×2 (10:26→11:06)
[2017-05-18] MEDS ORDERED: Ondansetron 4 MG Tab.DIS PO PRN (10:41)
[2017-05-18] MEDS ORDERED: Sodium Chloride 0.9% 1,000 ML IV ONE ×2 (10:51→14:00)
[2017-05-18] MEDS ORDERED: Ondansetron 4 MG/2 ML SDV IVPUSH ONE ×3 (10:51→14:00)
--- NOTE | 2017-05-18 11:03 | EDM.PDOC ---
ED HPI GENERAL MEDICAL PROBLEM - General Chief Complaint: General Stated Complaint: BLOOD INFECTION Time Seen by Provider: 05/18/17 10:45 Source of Information: Reports: Patient History Limitations: Reports: No Limitations - History of Present Illness INITIAL COMMENTS - FREE TEXT/NARRATIVE: History of present illness: [57-year-old male presents with complaints of nausea and vomiting. Patient indicates that he was on antibiotics for a colitis and that they have been completed but he also noticed at the same time he has had a cut on his left great finger that was contaminated and he feels that he has a blood infection. He indicates he has not felt well since the cuts despite the fact that it looks fully resolved.] Review of systems: As per history of present illness and below otherwise all systems reviewed and negative. Past medical history: As per history of present illness and as reviewed below otherwise noncontributory. Surgical history: As per history of present illness and as reviewed below otherwise noncontributory. Social history: No reported history of drug or alcohol abuse. Family history: As per history of present illness and as reviewed below otherwise noncontributory. Physical exam: HEENT: Atraumatic, normocephalic, pupils reactive, negative for conjunctival pallor or scleral icterus, mucous membranes moist, throat clear, neck supple, nontender, trachea midline. Lungs: Clear to auscultation, breath sounds equal bilaterally, chest nontender. Heart: S1S2, regular, negative for clicks, rubs, or JVD. Abdomen: Soft, diffuse nonspecific tenderness patient indicates left greater than right.. Negative for masses or hepatosplenomegaly. Negative for costovertebral tenderness. Pelvis: Stable nontender. Genitourinary: Deferred. Rectal: Deferred. Extremities: Atraumatic, negative for cords or calf pain. Neurovascular unremarkable. Neuro: Awake, alert, oriented. Cranial nerves II through XII unremarkable. Cerebellum unremarkable. Motor and sensory unremarkable throughout. Exam nonfocal. Skin: Patient with a putty-type fashion pallor. Diagnostics: [CBC, CMP, amylase, lipase, CT of abdomen and pelvis with contrast] Therapeutics: [] Impression: [Abdominal pain] Plan: [Transfer to ER at [place]] Definitive disposition and diagnosis as appropriate pending reevaluation and review of above. upper abdomen Pain Score (Numeric/FACES): 7 - Related Data Allergies Allergy/AdvReac Type Severity Reaction Status Date / Time Penicillins Allergy Rash Verified 05/18/17 10:44 Home Meds: Home Meds . [No Known Home Meds] 05/18/17 [History] Past Medical History HEENT History: Reports: Impaired Vision Other HEENT History: wears glasses Respiratory History: Reports: PE, Other (See Below) Other Respiratory History: "lots of scar tissue" Gastrointestinal History: Reports: GI Bleed Musculoskeletal History: Reports: Fracture Other Musculoskeletal History: right hand fracture Neurological History: Reports: Headaches, Chronic - Infectious Disease History Infectious Disease History: Reports: Chicken Pox, Measles - Past Surgical History HEENT Surgical History: Reports: None GI Surgical History: Reports: Other (See Below) Other GI Surgeries/Procedures: spleenectomy, exploratory abdominal surgery Social & Family History - Family History Family Medical History: Noncontributory Endocrine/Metabolic: Reports: Diabetes, type II Oncologic: Reports: Colon, Other (See Below) Other Oncologic Family History: Father of colon cancer - Tobacco Use Smoking Status *Q: Never Smoker Second Hand Smoke Exposure: Yes - Caffeine Use Caffeine Use: Reports: Coffee Caffeine Use Comment: 2-3cups/day - Alcohol Use Days Per Week of Alcohol Use: 0 - Recreational Drug Use Recreational Drug Use: No ED ROS GENERAL - Review of Systems Review Of Systems: See Below (See history of present illness) ED EXAM, GENERAL - Physical Exam Exam: See Below (The history of present illness) Course - Vital Signs Last Recorded V/S: Last Vital Signs Temp 37.7 C 05/18/17 10:39 Pulse 99 05/18/17 10:39 Resp 18 05/18/17 10:39 BP 142/74 H 05/18/17 10:39 Pulse Ox 94 L 05/18/17 10:39 - Orders/Labs/Meds Orders: Active Orders 24 hr Category Date Time Status Cardiac Monitoring [RC] . DIRECTED Care 05/18/17 10:26 Inactive EKG Documentation Completion [RC] STAT Care 05/18/17 10:26 Inactive Labs: Laboratory Tests 05/18/17 05/18/17 05/18/17 Range/Units 10:54 10:54 12:13 WBC 13.68 H (4.0-11.0) K/uL RBC 4.36 L (4.50-5.90) M/uL Hgb 12.9 L (13.0-17.0) g/dL Hct 37.3 L (38.0-50.0) % MCV 85.6 (80.0-98.0) fL MCH 29.6 (27.0-32.0) pg MCHC 34.6 (31.0-37.0) g/dL RDW Std Deviation 57.4 (28.0-62.0) fl RDW Coeff of Tawana 19 H (11.0-15.0) % Plt Count 355 (150-400) K/uL MPV 11.10 (7.40-12.00) fL Neut % (Auto) 85.8 H (48.0-80.0) % Lymph % (Auto) 7.4 L (16.0-40.0) % [place] % (Auto) 5.7 (0.0-15.0) % Eos % (Auto) 0.7 (0.0-7.0) % Baso % (Auto) 0.4 (0.0-1.5) % Neut # (Auto) 11.7 H (1.4-5.7) K/uL Lymph # (Auto) 1.0 (0.6-2.4) K/uL [place] # (Auto) 0.8 (0.0-0.8) K/uL Eos # (Auto) 0.1 (0.0-0.7) K/uL Baso # (Auto) 0.1 (0.0-0.1) K/uL Nucleated RBC % 0.0 /100WBC Nucleated RBCs # 0 K/uL Lactate 1.0 (0.20-2.00) mmol/L Sodium 141 (136-146) mmol/L Potassium 3.7 (3.5-5.1) mmol/L Chloride 109 (98-110) mmol/L Carbon Dioxide 23 (21-31) mmol/L BUN 12 (6.0-23.0) mg/dL Creatinine 0.8 (0.6-1.5) mg/dL Est Cr Clr Drug Dosing 116.52 mL/min Estimated GFR (MDRD) > 60.0 ml/min Glucose 93 (60-110) mg/dL Calcium 8.8 (8.8-10.8) mg/dL Total Bilirubin 1.1 (0.1-1.5) mg/dL AST 35 (5-40) IU/L ALT 38 (8-54) IU/L Alkaline Phosphatase 73 (40-150) Total Protein 7.1 (6.0-8.0) g/dL Albumin 3.8 (3.5-5.0) g/dL Globulin 3.3 (2.0-3.5) g/dL Albumin/Globulin Ratio 1.2 L (1.3-2.8) Amylase 42 (10-90) U/L Lipase 37 (7-80) U/L Meds: Medications Discontinued Medications Generic Name Dose Route Start Last Admin Trade Name Freq PRN Reason Stop Dose Admin Aspirin 324 mg 05/18/17 10:26 05/18/17 11:46 Aspirin PO 05/18/17 10:27 Not Given ONETIME ONE Famotidine 20 mg 05/18/17 10:26 05/18/17 11:46 Pepcid IVPUSH 05/18/17 10:27 Not Given ONETIME ONE Sodium Chloride 1,000 mls @ 999 mls/hr 05/18/17 10:51 05/18/17 11:02 Normal Saline IV 05/18/17 11:51 999 mls/hr STAT ONE Administration Iopamidol 100 ml 05/18/17 12:50 05/18/17 12:53 Isovue Multipack-370 (76%) IVPUSH 05/18/17 12:51 100 ml ONETIME STA Administration Ketorolac Tromethamine 30 mg 05/18/17 10:26 05/18/17 11:46 Toradol IVPUSH 05/18/17 10:27 Not Given ONETIME ONE Ketorolac Tromethamine 30 mg 05/18/17 11:06 05/18/17 11:29 Toradol IVPUSH 05/18/17 11:07 30 mg ONETIME ONE Administration Morphine Sulfate 2 mg 05/18/17 11:06 05/18/17 11:30 Morphine IVPUSH 05/18/17 11:07 2 mg ONETIME ONE Administration Ondansetron HCl 8 mg 05/18/17 10:41 Zofran Odt PO ONETIME PRN Nausea/Vomiting Ondansetron HCl 8 mg 05/18/17 10:51 05/18/17 11:02 Zofran IVPUSH 05/18/17 10:52 8 mg ONETIME ONE Administration Ondansetron HCl 8 mg 05/18/17 12:28 05/18/17 12:36 Zofran IVPUSH 05/18/17 12:29 8 mg ONETIME ONE Administration Departure - Departure Time of Disposition: 13:48 Disposition: DC/Tfer to Acute Hospital 02 Condition: Good Clinical Impression: Abdominal pain - Discharge Information Forms: ED Department Discharge - My Orders Last 24 Hours: My Active Orders 05/18/17 10:26 Cardiac Monitoring [RC] . DIRECTED EKG Documentation Completion [RC] STAT - Assessment/Plan Last 24 Hours: My Active Orders 05/18/17 10:26 Cardiac Monitoring [RC] . DIRECTED EKG Documentation Completion [RC] STAT
[2017-05-18] MEDS ORDERED: Morphine 2 MG/ML Syringe IVPUSH ONE ×2 (11:06→14:00)
[2017-05-18 11:29] LABS: CHLORIDE,CL 109 mmol/L (98-110); SODIUM,NA 141 mmol/L (136-146)
[2017-05-18] MEDS ORDERED: Iopamidol 755 MG/ML 500 ML Multipack Bottle IVPUSH STA (12:50)
--- NOTE | 2017-05-18 13:24 | CT ---
CT of the abdomen and pelvis with contrast. HISTORY: Pain TECHNIQUE: Axial CT images were obtained of the abdomen and pelvis following administration of 100 m L of Isovue-370 in the left antecubital fossa without complication. Coronal and sagittal reconstruct ions obtained. FINDINGS: There is a trace right pleural effusion. There is a vague 2.6 x 4.7 cm paraesophageal mass adjacent to the distal esophagus. The liver appear s unremarkable. The spleen is surgically absent. Adrenal glands appear grossly unremarkable. The gal lbladder appears mildly distended. There is intra and extrahepatic biliary ductal dilatation to the common bile duct just inferior to the cystic duct insertion. There is mild focal annular wall thicke delmi of the common bile duct at this region. The pancreatic duct is not dilated. There is likely cav ernous transformation of the portal vein with vascular congestion of the portal system within the me sentery. The kidneys enhance and function symmetrically without evidence of obstructive uropathy. Renal corti velvet cysts are noted on the right. Nonpathologically enlarged mesenteric and retroperitoneal lymph nodes are noted. There is a small am ount of free pelvic fluid. There is moderate cecal and ascending colon wall thickening and adjacent stranding. The urinary bladder is mostly decompressed. There is a small right femoral hernia contain ing fluid. No bulky pelvic lymphadenopathy. No free air. No suspicious osseous abnormalities identified. IMPRESSION: 1. Prominent paraesophageal soft tissue, an underlying mass or tumor is not excluded. 2. 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 3. Prominent intrahepatic and extrahepatic biliary ductal dilatation with a focal area of stenosis w ithin the superior common bile duct. Correlation with ERCP or MRCP may be beneficial. 4. Prominence bowel wall thickening within the proximal colon, mildly improved from the previous exa mination. This may represent focal colitis, however this may be secondary to overall vascular conges tion. 5. Small right pleural effusion and small amount of free pelvic fluid.
[2017-05-18 15:14] VITALS: BP 113/56
== END 2017-05-18 15:09 ==
LOC: MW.ED 10:19
DX: R10.10 Upper abdominal pain, unspecified (principal); R11.2 Nausea with vomiting, unspecified; Z88.0 Allergy status to penicillin
CPT/HCPCS: 36415; 74177; 80053; 82150; 83605; 83690; 85025; 96361; 96374; 96375; 96376; 99285; J1885; J2270; J2405; J7040; Q9967; 99284

== ENCOUNTER 2017-09-24 23:53 | Emergency (ER) | payer BC, OTHER ==
[2017-09-25 00:09] VITALS: BP 133/81
[2017-09-25] MEDS ORDERED: Ketorolac 60 MG/2 ML SDV IM ONE (00:15)
--- NOTE | 2017-09-25 00:20 | EDM.PDOC ---
ED HPI GENERAL MEDICAL PROBLEM - General Chief Complaint: Upper Extremity Injury/Pain Stated Complaint: LEFT SHOULDER PAIN Time Seen by Provider: 09/24/17 23:57 - History of Present Illness INITIAL COMMENTS - FREE TEXT/NARRATIVE: HISTORY AND PHYSICAL: History of present illness: The patient is a 57 y/o male who states he had arthroscopic surgery on his left shoulder back in the s where they did a "cleanup" for tissue damage and since that time he has had on and off pain but nothing significant. He says that yesterday morning he was doing some activities and it seemed to be more sore than usual but there was no sudden change in the pain and it was sore throughout the day but he didn't think it was significantly different requiring any intervention. He took some aspirin and went to sleep and he woke up and says the pain is worse in his left anterior shoulder. He says he didn't use the arm much yesterday because of discomfort but he has no neurosensory changes or weakness in the arm. He had no direct trauma to the area and has no back pain chest wall pain or systemic complaints of fever chills nausea vomiting or abdominal issues. He says that the muscle pain in the shoulder is now going up his neck. The patient tells me that he "always has pain in his shoulder" he does seem to be worse yesterday and even more accelerated this evening when he woke up Review of systems: As per history of present illness and below otherwise all systems reviewed and negative. Past medical history: As per history of present illness and as reviewed below otherwise noncontributory. Surgical history: As per history of present illness and as reviewed below otherwise noncontributory. Social history: No reported history of drug or alcohol abuse. Family history: As per history of present illness and as reviewed below otherwise noncontributory. Physical exam: General: Well-developed thin man who is nontoxic and vital signs of been reviewed by me. HEENT: Atraumatic, normocephalic, negative for conjunctival pallor or scleral icterus, mucous membranes moist, throat clear, neck supple, nontender, trachea midline. Lungs: Clear to auscultation, breath sounds equal bilaterally, chest nontender. Heart: S1S2, regular rate and rhythm no overt murmurs Abdomen: Soft, nondistended, nontender. NABS Pelvis: Deferred Genitourinary: Deferred. Rectal: Deferred. Extremities: Atraumatic appearing throughout without any palpable bony deformities including the left upper extremity. The left clavicle humerus elbow forearm wrist and hand are all without any deformities defects or malalignments. There is some soft tissue tenderness at the anterior shoulder and at the trigger point with some fullness in this location. There is no gross AC joint separation and there is no scapular tenderness, there is tenderness to the musculature of the trapezius on the left which extends from the anterior shoulder, all other extremities have full range of motion without defects or deficits, there is no AC step-offs appreciated on visual inspection, negative for cords or calf pain. Neurovascular unremarkable. Neuro: Awake, alert, oriented. Cranial nerves II through XII unremarkable. Cerebellum unremarkable. Motor and sensory unremarkable throughout. Exam nonfocal. Back: There are no midline step-offs in his defects of the cervical or thoracic spine and no scapular tenderness or rotator cuff tenderness on palpation of the left back area Diagnostics: Left shoulder x-ray Therapeutics: Toradol shoulder immobilizer I discussed with the patient the need for follow-up in our orthopedics clinic due to the moderate to severe arthritic changes as well as the acute on chronic pain. I will prescribe medications from [facility] that he continues Impression: Left shoulder injury/pain acute on chronic Definitive disposition and diagnosis as appropriate pending reevaluation and review of above. Treatments SCULPTURE CONSERVATOR: Reports: NSAIDS left shoulder Pain Score (Numeric/FACES): 10 - Related Data Allergies Allergy/AdvReac Type Severity Reaction Status Date / Time Penicillins Allergy Rash Verified 09/25/17 00:05 Home Meds: Home Meds . [No Known Home Meds] 05/18/17 [History] Past Medical History HEENT History: Reports: Impaired Vision Other HEENT History: wears glasses Cardiovascular History: Reports: None Respiratory History: Reports: PE Other Respiratory History: "lots of scar tissue" Gastrointestinal History: Reports: GI Bleed Genitourinary History: Reports: None Musculoskeletal History: Reports: Fracture Other Musculoskeletal History: right hand fracture Neurological History: Reports: Headaches, Chronic Psychiatric History: Reports: None Endocrine/Metabolic History: Reports: None Hematologic History: Reports: None Immunologic History: Reports: None Oncologic (Cancer) History: Reports: None Dermatologic History: Reports: None - Infectious Disease History Infectious Disease History: Reports: Chicken Pox, Measles - Past Surgical History HEENT Surgical History: Reports: None GI Surgical History: Reports: Other (See Below) Other GI Surgeries/Procedures: spleenectomy, exploratory abdominal surgery Social & Family History - Family History Family Medical History: Noncontributory Endocrine/Metabolic: Reports: Diabetes, type II Oncologic: Reports: Colon, Other (See Below) Other Oncologic Family History: Father of colon cancer - Tobacco Use Smoking Status *Q: Never Smoker Second Hand Smoke Exposure: Yes - Caffeine Use Caffeine Use: Reports: Coffee Caffeine Use Comment: 2-3cups/day - Alcohol Use Days Per Week of Alcohol Use: 0 - Recreational Drug Use Recreational Drug Use: No Review of Systems - Review of Systems Review Of Systems: ROS reveals no pertinent complaints other than HPI. ED EXAM, GENERAL - Physical Exam Exam: See Below (See dictation) Course - Vital Signs Last Recorded V/S: Last Vital Signs Temp 37.3 C 09/25/17 00:06 Pulse 73 09/25/17 00:06 Resp 18 09/25/17 00:06 BP 133/81 09/25/17 00:06 Pulse Ox 96 09/25/17 00:06 - Orders/Labs/Meds Orders: Active Orders 24 hr Category Date Time Status Shoulder Comp Lt [CR] Stat Exams 09/25/17 00:15 Ordered DME for Discharge [COMM] Stat Oth 09/25/17 01:00 Ordered Meds: Medications Discontinued Medications Generic Name Dose Route Start Last Admin Trade Name Madhuq PRN Reason Stop Dose Admin Ketorolac Tromethamine 60 mg 09/25/17 00:15 09/25/17 00:26 Toradol IM 09/25/17 00:16 60 mg ONETIME ONE Administration Departure - Departure Time of Disposition: 01:03 Disposition: Home, Self-Care 01 Condition: Good Clinical Impression: Left shoulder pain Qualifiers: Chronicity: unspecified Qualified Code(s): M25.512 - Pain in left shoulder - Discharge Information Referrals: PCP,None [Primary Care Provider] - Forms: ED Department Discharge Additional Instructions: The following information is given to patients seen in the emergency department who are being discharged to home. This information is to outline your options for follow-up care. We provide all patients seen in our emergency department with a follow-up referral. The need for follow-up, as well as the timing and circumstances, are variable depending upon the specifics of your emergency department visit. If you don't have a primary care physician on staff, we will provide you with a referral. We always advise you to contact your personal physician following an emergency department visit to inform them of the circumstance of the visit and for follow-up with them and/or the need for any referrals to a consulting specialist. The emergency department will also refer you to a specialist when appropriate. This referral assures that you have the opportunity for followup care with a specialist. All of these measure are taken in an effort to provide you with optimal care, which includes your followup. Under all circumstances we always encourage you to contact your private physician who remains a resource for coordinating your care. When calling for followup care, please make the office aware that this follow-up is from your recent emergency room visit. If for any reason you are refused follow-up, please contact the [facility] emergency department at and ask to speak to the emergency department charge nurse. [facility] Specialty Care--Orthopedic clinic [address] [address] Please wear immobilizer at all times for the next several days and call our orthopedics clinic first thing in the morning to schedule follow-up visit in the next few days. Place ice on front part of shoulder to help reduce inflammation and swelling and use medications given to be a [facility], diclofenac or tramadol, as needed. You can take the diclofenac and go to work and drive a car but take the tramadol only at home. Return to ER as needed and as discussed - My Orders Last 24 Hours: My Active Orders 09/25/17 00:15 Shoulder Comp Lt [CR] Stat 09/25/17 01:00 DME for Discharge [COMM] Stat - Assessment/Plan Last 24 Hours: My Active Orders 09/25/17 00:15 Shoulder Comp Lt [CR] Stat 09/25/17 01:00 DME for Discharge [COMM] Stat
--- NOTE | 2017-09-25 10:29 | CR ---
EXAM DATE: 09/24/17 PATIENT'S AGE: 57 Patient: MASHA MONTGOMERY Facility: [place], [place] Site . Site : 1960 Study: XRay Shoulder Left [id number]/[id number] 12:49:53 AM Ordering Physician: Sergio Forte Final Report: INDICATION: Shoulder pain, injury. Patient not able to lift arm. TECHNIQUE: Left shoulder, two views COMPARISON: None FINDINGS: Moderate -severe degenerate changes of left glenohumeral joint. No acute fracture or dislocation injury. Surgical clips at the left neck base. Visualized left upper lung zone clear. Visualized upper left ribs are intact. IMPRESSION: 1. No acute left shoulder fracture. Left glenohumeral joint osteoarthritis. Dictated by Cirilo Fallon MD @ 09/25/2017 12:53:51 AM Dictated by: Cirilo Fallon MD @ 09/25/2017 00:53:55 (Electronic Signature) Report Signed by Proxy. NETTIE
== END 2017-09-25 01:20 | disposition home or self-care (01) ==
LOC: MW.ED 23:53
DX: S49.92XA Unspecified injury of left shoulder and upper arm, initial encounter (principal); Z77.22 Contact with and (suspected) exposure to environmental tobacco smoke (acute) (chronic); Z88.0 Allergy status to penicillin; X58.XXXA Exposure to other specified factors, initial encounter
CPT/HCPCS: 73030; 96372; 99283; A4566; J1885; 99284

== ENCOUNTER 2017-10-08 16:46 | Emergency (ER) | payer OTHER ==
[2017-10-08] MEDS ORDERED: Ketorolac 60 MG/2 ML SDV IM ONE (17:02)
--- NOTE | 2017-10-08 17:02 | EDM.PDOC ---
ED HPI GENERAL MEDICAL PROBLEM - General Chief Complaint: Upper Extremity Injury/Pain Stated Complaint: PAIN LT SHOULDER Time Seen by Provider: 10/08/17 16:52 Source of Information: Reports: Patient History Limitations: Reports: No Limitations - History of Present Illness INITIAL COMMENTS - FREE TEXT/NARRATIVE: History of present illness: [57-year-old male presenting with complaints of left shoulder pain. Patient has a distant history of approximately 20+ years ago of a labral tear with subsequent repair. Patient was seen in the ER for the same complaint with a follow-up with or so and subsequent steroid injection a brief run of pain medication and sling. Patient is returning now indicating that the pain is intractable with passive range of motion, but can participate in active range of motion. Patient feels the pain is is debilitating and he is seeking answers and interventions.] Review of systems: As per history of present illness and below otherwise all systems reviewed and negative. Past medical history: As per history of present illness and as reviewed below otherwise noncontributory. Surgical history: As per history of present illness and as reviewed below otherwise noncontributory. Social history: No reported history of drug or alcohol abuse. Family history: As per history of present illness and as reviewed below otherwise noncontributory. Physical exam: HEENT: Atraumatic, normocephalic, pupils reactive, negative for conjunctival pallor or scleral icterus, mucous membranes moist, throat clear, neck supple, nontender, trachea midline. Lungs: Clear to auscultation, breath sounds equal bilaterally, chest nontender. Heart: S1S2, regular, negative for clicks, rubs, or JVD. Abdomen: Soft, nondistended, nontender. Negative for masses or hepatosplenomegaly. Negative for costovertebral tenderness. Pelvis: Stable nontender. Genitourinary: Deferred. Rectal: Deferred. Extremities: Atraumatic, negative for cords or calf pain. Neurovascular unremarkable. Left arm painful with range of motion crepitus noted in left shoulder Neuro: Awake, alert, oriented. Cranial nerves II through XII unremarkable. Cerebellum unremarkable. Motor and sensory unremarkable throughout. Exam nonfocal. Diagnostics: [] Therapeutics: [Toradol 60 mg IM] Impression: [#1 Adhesive capsulitis] Plan: [Brief run of pain medicine referral back without] Definitive disposition and diagnosis as appropriate pending reevaluation and review of above. - Related Data Allergies Allergy/AdvReac Type Severity Reaction Status Date / Time Penicillins Allergy Rash Verified 10/08/17 16:57 Home Meds: Home Meds Acetaminophen/HYDROcodone [Lortab 500-5 MG] 1 tab PO Q4H PRN 10/08/17 [History] methylPREDNISolone [Medrol] 4 mg PO DAILY #21 tab.ds.pk 10/08/17 [Rx] Past Medical History HEENT History: Reports: Impaired Vision Other HEENT History: wears glasses Cardiovascular History: Reports: None Respiratory History: Reports: PE Other Respiratory History: "lots of scar tissue" Gastrointestinal History: Reports: GI Bleed Genitourinary History: Reports: None Musculoskeletal History: Reports: Fracture Other Musculoskeletal History: right hand fracture Neurological History: Reports: Headaches, Chronic Psychiatric History: Reports: None Endocrine/Metabolic History: Reports: None Hematologic History: Reports: None Immunologic History: Reports: None Oncologic (Cancer) History: Reports: None Dermatologic History: Reports: None - Infectious Disease History Infectious Disease History: Reports: Chicken Pox, Measles - Past Surgical History HEENT Surgical History: Reports: None GI Surgical History: Reports: Other (See Below) Other GI Surgeries/Procedures: spleenectomy, exploratory abdominal surgery Social & Family History - Family History Family Medical History: Noncontributory Endocrine/Metabolic: Reports: Diabetes, type II Oncologic: Reports: Colon, Other (See Below) Other Oncologic Family History: Father of colon cancer - Tobacco Use Smoking Status *Q: Never Smoker Second Hand Smoke Exposure: Yes - Caffeine Use Caffeine Use: Reports: Coffee Caffeine Use Comment: 2-3cups/day - Alcohol Use Days Per Week of Alcohol Use: 0 - Recreational Drug Use Recreational Drug Use: No Review of Systems - Review of Systems Review Of Systems: See Below (See history of present illness) ED EXAM, GENERAL - Physical Exam Exam: See Below (See history of present illness) Departure - Departure Time of Disposition: 17:16 Disposition: Home, Self-Care 01 Condition: Good Clinical Impression: Left shoulder pain Qualifiers: Chronicity: unspecified Qualified Code(s): M25.512 - Pain in left shoulder - Discharge Information Instructions: Shoulder Pain, [id number] Referrals: PCP,None [Primary Care Provider] - Additional Instructions: The following information is given to patients seen in the emergency department who are being discharged to home. This information is to outline your options for follow-up care. We provide all patients seen in our emergency department with a follow-up referral. The need for follow-up, as well as the timing and circumstances, are variable depending upon the specifics of your emergency department visit. If you don't have a primary care physician on staff, we will provide you with a referral. We always advise you to contact your personal physician following an emergency department visit to inform them of the circumstance of the visit and for follow-up with them and/or the need for any referrals to a consulting specialist. The emergency department will also refer you to a specialist when appropriate. This referral assures that you have the opportunity for follow-up care with a specialist. All of these measure are taken in an effort to provide you with optimal care, which includes your follow-up. Under all circumstances we always encourage you to contact your private physician who remains a resource for coordinating your care. When calling for follow-up care, please make the office aware that this follow-up is from your recent emergency room visit. If for any reason you are refused follow-up, please contact the [facility] Emergency Department at and asked to speak to the emergency department charge nurse. Follow-up with orthopedic as discussed Take medication as described Follow-up with primary care in 2-3 days Return to ED as needed as discussed [facility] Primary Care [facility] [place] [id number]
[2017-10-08 17:55] VITALS: BP 146/83
== END 2017-10-08 17:58 | disposition home or self-care (01) ==
LOC: MW.ED 16:46
DX: M75.02 Adhesive capsulitis of left shoulder (principal); Z77.22 Contact with and (suspected) exposure to environmental tobacco smoke (acute) (chronic); Z79.899 Other long term (current) drug therapy; Z88.0 Allergy status to penicillin
CPT/HCPCS: 96372; 99282; J1885; 99283

== ENCOUNTER 2017-10-10 04:08 | Emergency (ER) | payer OTHER ==
--- NOTE | 2017-10-10 04:21 | EDM.PDOC ---
ED HPI GENERAL MEDICAL PROBLEM - General Stated Complaint: LEFT SHOULDER PAIN Time Seen by Provider: 10/10/17 04:17 - History of Present Illness INITIAL COMMENTS - FREE TEXT/NARRATIVE: HISTORY AND PHYSICAL: History of present illness: Patient 57-year-old male presents with a concern of chronic left shoulder pain he's been seen multiple times in the emergency department has also been seen by orthopedic surgery he's currently on Lortab he presents without a shoulder immobilizer which was prescribed prior to the no trauma or other concern. Review of systems: As per history of present illness and below otherwise all systems reviewed and negative. Past medical history: As per history of present illness and as reviewed below otherwise noncontributory. Surgical history: As per history of present illness and as reviewed below otherwise noncontributory. Social history: No reported history of drug or alcohol abuse. Family history: As per history of present illness and as reviewed below otherwise noncontributory. Physical exam: HEENT: Atraumatic, normocephalic, pupils reactive, negative for conjunctival pallor or scleral icterus, mucous membranes moist, throat clear, neck supple, nontender, trachea midline. Lungs: Clear to auscultation, breath sounds equal bilaterally, chest nontender. Heart: S1S2, regular, negative for clicks, rubs, or JVD. Abdomen: Soft, nondistended, nontender. Negative for masses or hepatosplenomegaly. Negative for costovertebral tenderness. Pelvis: Stable nontender. Genitourinary: Deferred. Rectal: Deferred. Extremities: Atraumatic, patient is no erythema no crepitation limited range of motion secondary to pain no obvious deformity or evidence of dislocation Neuro: Awake, alert, oriented. Cranial nerves II through XII unremarkable. Cerebellum unremarkable. Motor and sensory unremarkable throughout. Exam nonfocal. Diagnostics: Deferred Therapeutics: Sling Impression: #1 chronic left shoulder Definitive disposition and diagnosis as appropriate pending reevaluation and review of above. - Related Data Allergies Allergy/AdvReac Type Severity Reaction Status Date / Time Penicillins Allergy Rash Verified 10/08/17 16:57 Home Meds: Home Meds Acetaminophen/HYDROcodone [Lortab 500-5 MG] 1 tab PO Q4H PRN 10/08/17 [History] methylPREDNISolone [Medrol] 4 mg PO DAILY #21 tab.ds.pk 10/08/17 [Rx] Past Medical History HEENT History: Reports: Impaired Vision Other HEENT History: wears glasses Cardiovascular History: Reports: None Respiratory History: Reports: PE Other Respiratory History: "lots of scar tissue" Gastrointestinal History: Reports: GI Bleed Genitourinary History: Reports: None Musculoskeletal History: Reports: Fracture Other Musculoskeletal History: right hand fracture Neurological History: Reports: Headaches, Chronic Psychiatric History: Reports: None Endocrine/Metabolic History: Reports: None Hematologic History: Reports: None Immunologic History: Reports: None Oncologic (Cancer) History: Reports: None Dermatologic History: Reports: None - Infectious Disease History Infectious Disease History: Reports: Chicken Pox, Measles - Past Surgical History HEENT Surgical History: Reports: None GI Surgical History: Reports: Other (See Below) Other GI Surgeries/Procedures: spleenectomy, exploratory abdominal surgery Social & Family History - Family History Family Medical History: Noncontributory Endocrine/Metabolic: Reports: Diabetes, type II Oncologic: Reports: Colon, Other (See Below) Other Oncologic Family History: Father of colon cancer - Tobacco Use Smoking Status *Q: Never Smoker Second Hand Smoke Exposure: Yes - Caffeine Use Caffeine Use: Reports: Coffee Caffeine Use Comment: 2-3cups/day - Alcohol Use Days Per Week of Alcohol Use: 0 - Recreational Drug Use Recreational Drug Use: No ED ROS GENERAL - Review of Systems Review Of Systems: ROS reveals no pertinent complaints other than HPI. ED EXAM, GENERAL - Physical Exam Exam: See Below (See dictation) Departure - Departure Time of Disposition: 04:20 Disposition: Home, Self-Care 01 Condition: Good Clinical Impression: Chronic left shoulder pain - Discharge Information Referrals: PCP,None [Primary Care Provider] - Additional Instructions: The following information is given to patients seen in the emergency department who are being discharged to home. This information is to outline your options for follow-up care. We provide all patients seen in our emergency department with a follow-up referral. The need for follow-up, as well as the timing and circumstances, are variable depending upon the specifics of your emergency department visit. If you don't have a primary care physician on staff, we will provide you with a referral. We always advise you to contact your personal physician following an emergency department visit to inform them of the circumstance of the visit and for follow-up with them and/or the need for any referrals to a consulting specialist. The emergency department will also refer you to a specialist when appropriate. This referral assures that you have the opportunity for followup care with a specialist. All of these measure are taken in an effort to provide you with optimal care, which includes your followup. Under all circumstances we always encourage you to contact your private physician who remains a resource for coordinating your care. When calling for followup care, please make the office aware that this follow-up is from your recent emergency room visit. If for any reason you are refused follow-up, please contact the [facility] emergency department at and asked to speak to the emergency department charge nurse. Specialty Care - Orthopedic Clinic Professional [address], [address] [place] [address] Call to schedule appointment sling as directed continue current meds return as needed as discussed
[2017-10-10] MEDS ORDERED: Ketorolac 30 MG/ML SDV IM ONE (04:22)
[2017-10-10 05:07] VITALS: BP 140/80
== END 2017-10-10 05:00 | disposition home or self-care (01) ==
LOC: MW.ED 04:08
DX: M25.512 Pain in left shoulder (principal); G89.29 Other chronic pain; Z88.0 Allergy status to penicillin; Z79.899 Other long term (current) drug therapy
CPT/HCPCS: 96372; 99283; A4566; J1885; 99282

== ENCOUNTER 2017-10-17 17:42 | Emergency (ER) | payer OTHER ==
[2017-10-17] MEDS ORDERED: Sodium Chloride 0.9% 1,000 ML IV ONE (17:56)
[2017-10-17] MEDS ORDERED: Sodium Chloride 0.9% 10 ML Syringe FLUSH PRN (17:57)
[2017-10-17] MEDS ORDERED: Sodium Chloride 0.9% 2.5 ML Syringe FLUSH PRN (17:57)
[2017-10-17] MEDS ORDERED: Pantoprazole 40 MG Vial IVPUSH ONE (18:07)
[2017-10-17] MEDS ORDERED: Ondansetron 4 MG/2 ML SDV IVPUSH ONE (18:08)
[2017-10-17] MEDS ORDERED: Morphine 4 MG/ML Syringe IVPUSH ONE (18:08)
--- NOTE | 2017-10-17 18:08 | EDM.PDOC ---
ED HPI GENERAL MEDICAL PROBLEM - General Chief Complaint: Abdominal Pain Stated Complaint: ABDOMAN PAIN Time Seen by Provider: 10/17/17 17:52 Source of Information: Reports: Patient History Limitations: Reports: No Limitations - History of Present Illness INITIAL COMMENTS - FREE TEXT/NARRATIVE: History of present illness: []Patient presents via EMS for acute onset of 2 episodes of bloody stools today. Veins of left lower quadrant pain. He denies any vomiting of blood fevers , chills or chest pain. She states he dislocated his shoulder about a month ago and still has residual pain on the left shoulder. Taking increased amounts of ibuprofen for his pain. 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 Review of systems: As per history of present illness and below otherwise all systems reviewed and negative. Past medical history: As per history of present illness and as reviewed below otherwise noncontributory. Surgical history: As per history of present illness and as reviewed below otherwise noncontributory. Social history: No reported history of drug or alcohol abuse. Family history: As per history of present illness and as reviewed below otherwise noncontributory. Physical exam: General: Well developed, well nourished in NAD HEENT: Atraumatic, normocephalic, pupils reactive, negative for conjunctival pallor or scleral icterus, mucous membranes moist, throat clear, neck supple, nontender, trachea midline. Lungs: Clear to auscultation, breath sounds equal bilaterally, chest nontender. Heart: S1S2, regular, negative for clicks, rubs, or JVD. Abdomen: Mild tenderness left mid to lower quadrant no rebound or guarding. Negative for masses or hepatosplenomegaly. Negative for costovertebral tenderness. Pelvis: Stable nontender. Genitourinary: Deferred. Rectal: Maroon blood noted on rectal exam Extremities: Atraumatic, negative for cords or calf pain. Neurovascular unremarkable. Neuro: Awake, alert, oriented. Cranial nerves II through XII unremarkable. Cerebellum unremarkable. Motor and sensory unremarkable throughout. Exam nonfocal. Diagnostics: []Labs showing H&H of 06/07, vital signs are stable in the ED guaiac positive for blood Therapeutics: []Tonic spell bolus and drip given Impression: []GI bleed Plan: []Transfer to [facility] to Dr. Laureano Definitive disposition and diagnosis as appropriate pending reevaluation and review of above. Abdominal Pain Score (Numeric/FACES): 0 - Related Data Allergies Allergy/AdvReac Type Severity Reaction Status Date / Time Penicillins Allergy Rash Verified 10/10/17 04:29 Home Meds: Home Meds Acetaminophen/HYDROcodone [Lortab 500-5 MG] 1 tab PO Q4H PRN 10/08/17 [History] methylPREDNISolone [Medrol] 4 mg PO DAILY #21 tab.ds.pk 10/08/17 [Rx] Past Medical History HEENT History: Reports: Impaired Vision Other HEENT History: wears glasses Cardiovascular History: Reports: None Respiratory History: Reports: PE Other Respiratory History: "lots of scar tissue" Gastrointestinal History: Reports: GI Bleed Genitourinary History: Reports: None Musculoskeletal History: Reports: Fracture Other Musculoskeletal History: right hand fracture Neurological History: Reports: Headaches, Chronic Psychiatric History: Reports: None Endocrine/Metabolic History: Reports: None Hematologic History: Reports: None Immunologic History: Reports: None Oncologic (Cancer) History: Reports: None Dermatologic History: Reports: None - Infectious Disease History Infectious Disease History: Reports: Chicken Pox, Measles - Past Surgical History HEENT Surgical History: Reports: None GI Surgical History: Reports: Other (See Below) Other GI Surgeries/Procedures: spleenectomy, exploratory abdominal surgery Social & Family History - Family History Family Medical History: Noncontributory Endocrine/Metabolic: Reports: Diabetes, type II Oncologic: Reports: Colon, Other (See Below) Other Oncologic Family History: Father of colon cancer - Tobacco Use Smoking Status *Q: Never Smoker Second Hand Smoke Exposure: No - Caffeine Use Caffeine Use: Reports: None Caffeine Use Comment: 2-3cups/day - Alcohol Use Days Per Week of Alcohol Use: 0 - Recreational Drug Use Recreational Drug Use: No ED ROS GENERAL - Review of Systems Review Of Systems: See Below (See history of present illness) ED EXAM, GI/ABD - Physical Exam Exam: See Below (See history of present illness) Course - Vital Signs Last Recorded V/S: Last Vital Signs Temp 97.4 F 10/17/17 17:56 Pulse 77 10/17/17 18:58 Resp 18 10/17/17 18:58 BP 113/77 10/17/17 18:58 Pulse Ox 97 10/17/17 18:58 - Orders/Labs/Meds Orders: Active Orders 24 hr Category Date Time Status Saline Lock Insert [OM.PC] Stat Oth 10/17/17 17:55 Ordered Labs: Laboratory Tests 10/17/17 10/17/17 10/17/17 Range/Units 18:07 18:07 18:07 WBC 15.37 H (4.0-11.0) K/uL RBC 3.16 L (4.50-5.90) M/uL Hgb 8.7 L (13.0-17.0) g/dL Hct 26.1 L (38.0-50.0) % MCV 82.6 (80.0-98.0) fL MCH 27.5 (27.0-32.0) pg MCHC 33.3 (31.0-37.0) g/dL RDW Std Deviation 53.6 (28.0-62.0) fl RDW Coeff of Tawana 18 H (11.0-15.0) % Plt Count 695 H (150-400) K/uL MPV 9.20 (7.40-12.00) fL Add Manual Diff YES Neutrophils % (Manual) 74 (48.0-80.0) % Lymphocytes % (Manual) 21 (16.0-40.0) % Monocytes % (Manual) 5 (0.0-15.0) % Nucleated RBC % 0.0 /100WBC Absolute Seg Neuts 11.4 H (1.4-5.7) Lymphocytes # (Manual) 3.2 H (0.6-2.4) Monocytes # (Manual) 0.8 (0.0-0.8) Nucleated RBCs # 0 K/uL Poikilocytosis 1+ SLIGHT Target Cells 1+ SLIGHT INR (0.86-1.11) APTT (18.6-31.3) SEC Lactate (0.20-2.00) mmol/L Sodium 143 (136-146) mmol/L Potassium 4.4 (3.5-5.1) mmol/L Chloride 112 H (98-110) mmol/L Carbon Dioxide 24 (21-31) mmol/L BUN 33 H (6.0-23.0) mg/dL Creatinine 0.7 (0.6-1.5) mg/dL Est Cr Clr Drug Dosing 128.52 mL/min Estimated GFR (MDRD) > 60.0 ml/min Glucose 143 H (60-110) mg/dL Calcium 8.3 L (8.8-10.8) mg/dL Total Bilirubin 0.2 (0.1-1.5) mg/dL AST 23 (5-40) IU/L ALT 24 (8-54) IU/L Alkaline Phosphatase 94 (40-150) Total Protein 5.6 L (6.0-8.0) g/dL Albumin 2.5 L (3.5-5.0) g/dL Globulin 3.1 (2.0-3.5) g/dL Albumin/Globulin Ratio 0.8 L (1.3-2.8) Lipase 49 (7-80) U/L Blood Type A POSITIVE Antibody Screen NEGATIVE 10/17/17 10/17/17 Range/Units 18:07 18:07 WBC (4.0-11.0) K/uL RBC (4.50-5.90) M/uL Hgb (13.0-17.0) g/dL Hct (38.0-50.0) % MCV (80.0-98.0) fL MCH (27.0-32.0) pg MCHC (31.0-37.0) g/dL RDW Std Deviation (28.0-62.0) fl RDW Coeff of Tawana (11.0-15.0) % Plt Count (150-400) K/uL MPV (7.40-12.00) fL Add Manual Diff Neutrophils % (Manual) (48.0-80.0) % Lymphocytes % (Manual) (16.0-40.0) % Monocytes % (Manual) (0.0-15.0) % Nucleated RBC % /100WBC Absolute Seg Neuts (1.4-5.7) Lymphocytes # (Manual) (0.6-2.4) Monocytes # (Manual) (0.0-0.8) Nucleated RBCs # K/uL Poikilocytosis Target Cells INR 1.11 (0.86-1.11) APTT 22.0 (18.6-31.3) SEC Lactate 1.4 (0.20-2.00) mmol/L Sodium (136-146) mmol/L Potassium (3.5-5.1) mmol/L Chloride (98-110) mmol/L Carbon Dioxide (21-31) mmol/L BUN (6.0-23.0) mg/dL Creatinine (0.6-1.5) mg/dL Est Cr Clr Drug Dosing mL/min Estimated GFR (MDRD) ml/min Glucose (60-110) mg/dL Calcium (8.8-10.8) mg/dL Total Bilirubin (0.1-1.5) mg/dL AST (5-40) IU/L ALT (8-54) IU/L Alkaline Phosphatase (40-150) Total Protein (6.0-8.0) g/dL Albumin (3.5-5.0) g/dL Globulin (2.0-3.5) g/dL Albumin/Globulin Ratio (1.3-2.8) Lipase (7-80) U/L Blood Type Antibody Screen Meds: Medications Discontinued Medications Generic Name Dose Route Start Last Admin Trade Name Freq PRN Reason Stop Dose Admin Sodium Chloride 1,000 mls @ 999 mls/hr 10/17/17 17:56 10/17/17 18:02 Normal Saline IV 10/17/17 18:56 999 mls/hr .Bolus ONE Administration Pantoprazole Sodium 80 mg/ 100 mls @ 10 mls/hr 10/17/17 18:15 Sodium Chloride IV .Continuous LUIS Morphine Sulfate 4 mg 10/17/17 18:08 10/17/17 18:17 Morphine IVPUSH 10/17/17 18:09 4 mg ONETIME ONE Administration Ondansetron HCl 4 mg 10/17/17 18:08 10/17/17 18:17 Zofran IVPUSH 10/17/17 18:09 4 mg ONETIME ONE Administration Pantoprazole Sodium 80 mg 10/17/17 18:07 10/17/17 18:17 Protonix Iv IVPUSH 10/17/17 18:08 80 mg .BOLUS ONE Administration Sodium Chloride 10 ml 10/17/17 17:57 10/17/17 18:03 Saline Flush FLUSH 10 ml ASDIRECTED PRN Administration Keep Vein Open Sodium Chloride 2.5 ml 10/17/17 17:57 10/17/17 18:03 Saline Flush FLUSH 2.5 ml ASDIRECTED PRN Administration Keep Vein Open Departure - Departure Time of Disposition: 19:00 Disposition: DC/Tfer to Acute Hospital 02 Condition: Fair Clinical Impression: GI bleed Qualifiers: GI bleed type/associated pathology: melena Qualified Code(s): K92.1 - Melena - Discharge Information Referrals: PCP,None [Primary Care Provider] - Forms: ED Department Discharge - My Orders Last 24 Hours: My Active Orders 10/17/17 17:55 Saline Lock Insert [OM.PC] Stat - Assessment/Plan Last 24 Hours: My Active Orders 10/17/17 17:55 Saline Lock Insert [OM.PC] Stat
[2017-10-17] MEDS ORDERED: Pantoprazole 80 MG in Sodium Chloride 0.9% 100 ML IV SCH (18:15)
[2017-10-17 18:45] LABS: CHLORIDE,CL 112 mmol/L (98-110); SODIUM,NA 143 mmol/L (136-146)
[2017-10-17 19:48] VITALS: BP 113/77
== END 2017-10-17 19:20 ==
LOC: MW.ED 17:42
DX: K92.1 Melena (principal); Z88.0 Allergy status to penicillin; Z79.899 Other long term (current) drug therapy
CPT/HCPCS: 36415; 80053; 83605; 83690; 85025; 85610; 85730; 86850; 86900; 86901; 96365; 96375; 96376; 99285; C9113; J2270; J2405; J7040; 99284

== ENCOUNTER 2017-10-22 18:56 | Emergency (ER) | payer OTHER ==
[2017-10-22 19:12] VITALS: BP 117/72
[2017-10-22] MEDS ORDERED: Sodium Chloride 0.9% 10 ML Syringe FLUSH PRN (19:51)
[2017-10-22] MEDS ORDERED: Sodium Chloride 0.9% 1,000 ML IV ONE (19:51)
[2017-10-22] MEDS ORDERED: Pantoprazole 40 MG Vial IVPUSH ONE (19:51)
[2017-10-22] MEDS ORDERED: Sodium Chloride 0.9% 2.5 ML Syringe FLUSH PRN (19:51)
--- NOTE | 2017-10-22 19:56 | EDM.PDOC ---
ED HPI GENERAL MEDICAL PROBLEM - General Chief Complaint: Gastrointestinal Problem Stated Complaint: BLOOD IN STOOL Time Seen by Provider: 10/22/17 19:42 - History of Present Illness INITIAL COMMENTS - FREE TEXT/NARRATIVE: HISTORY AND PHYSICAL: History of present illness: The patient is a 57-year-old male who presents with complaints of having one very large black tarry stool this evening and having generalized weakness and looking pale. According to the patient he was seen at [facility] in [place] after being transferred from our ER for upper GI bleeding. He said that 2 days ago the GI physician did an endoscopy and cauterized some bleeding in his stomach. The patient also has a history of bleeding varices in the past due to portal vein thrombosis and splenectomy secondary to that. He says that while he was at [facility] his hemoglobin dropped down to 7.5. He said he was doing well when he was discharged and has been feeling well until this evening. He's had no chest pain shortness of breath nausea vomiting diarrhea or black or bloody stools until this evening. According to his at bedside he looked at his baseline until this evening after the bowel movement and now he looks very pale. The patient denies any stomach pain and but says that he felt short of breath this evening right before the bowel movement and has some chest discomfort since the bowel movement. He is not nauseated here and does has generalized weakness. He has no other complaints. Patient says he was eating and drinking normally throughout the day. Patient has a history of taking NSAIDs which triggered the initial GI bleed but he has declined that he has been using them since he was transferred to [place]. Review of systems: As per history of present illness and below otherwise all systems reviewed and negative. Past medical history: As per history of present illness and as reviewed below otherwise noncontributory. Surgical history: As per history of present illness and as reviewed below otherwise noncontributory. Social history: No reported history of drug or alcohol abuse. Family history: As per history of present illness and as reviewed below otherwise noncontributory. Physical exam: Gen.: Well-developed well-nourished male who looks very pale and sallow in color but was hemodynamically stable in the ED. HEENT: Atraumatic, normocephalic, pupils reactive, positive for conjunctival pallor no scleral icterus, mucous membranes moist, throat clear, neck supple, nontender, trachea midline. Lungs: Clear to auscultation, breath sounds equal bilaterally, chest nontender. Heart: S1S2, regular, negative for clicks, rubs, or JVD. Abdomen: Soft, nondistended, nontender. Bowel sounds are slightly hypoactive and there is tubing and percussion of the upper abdomen without rebound or guarding on palpation Negative for masses. Pelvis: Stable nontender. Genitourinary: Deferred. Rectal: There are no masses and tone is normal. There is scant amount of maroon- like blood in the vault which is Hemoccult positive Extremities: Atraumatic, negative for cords or calf pain. Neurovascular unremarkable. Neuro: Awake, alert, oriented. Cranial nerves II through XII unremarkable. Cerebellum unremarkable. Motor and sensory unremarkable throughout. Exam nonfocal. Diagnostics: EKG CBC CMP INR troponin chest x-ray type and screen Therapeutics: IV O2 monitor IV fluids Protonix bolus and drip, octreotide 2036: After hemoglobin results were obtained 1 unit of packed red blood cells was ordered to be given by the flight team in transfer. I discussed this case at this time with Dr. Lowry who accepts the patient for transfer and agrees with me that we will give a dose of octreotide 50 mics. Flight team has been notified and is in route. Patient is aware of the need for transfer and currently is hemodynamically stable. I will continue to monitor his blood tests and results until he is officially transferred Critical care time excluding procedures:31min Impression: Recurrent upper GI bleed with critical anemia Definitive disposition and diagnosis as appropriate pending reevaluation and review of above. Left Shoulder Pain Score (Numeric/FACES): 7 - Related Data Allergies Allergy/AdvReac Type Severity Reaction Status Date / Time Penicillins Allergy Rash Verified 10/22/17 19:13 Home Meds: Home Meds . [No Known Home Meds] 10/22/17 [History] Past Medical History HEENT History: Reports: Impaired Vision Other HEENT History: wears glasses Cardiovascular History: Reports: Blood Clots/VTE/DVT Respiratory History: Reports: PE Other Respiratory History: "lots of scar tissue" Gastrointestinal History: Reports: GI Bleed Genitourinary History: Reports: None Musculoskeletal History: Reports: Fracture Other Musculoskeletal History: right hand fracture Neurological History: Reports: Headaches, Chronic Psychiatric History: Reports: None Endocrine/Metabolic History: Reports: None Hematologic History: Reports: Blood Transfusion(s) Immunologic History: Reports: None Oncologic (Cancer) History: Reports: None Dermatologic History: Reports: None - Infectious Disease History Infectious Disease History: Reports: Chicken Pox, Measles - Past Surgical History HEENT Surgical History: Reports: None GI Surgical History: Reports: Other (See Below) Other GI Surgeries/Procedures: spleenectomy, exploratory abdominal surgery, abd surgery to cauterize bleed Social & Family History - Family History Family Medical History: Noncontributory Endocrine/Metabolic: Reports: Diabetes, type II Oncologic: Reports: Colon, Other (See Below) Other Oncologic Family History: Father of colon cancer - Tobacco Use Smoking Status *Q: Never Smoker Second Hand Smoke Exposure: No - Caffeine Use Caffeine Use: Reports: Coffee Caffeine Use Comment: 2-3cups/day - Alcohol Use Days Per Week of Alcohol Use: 0 - Recreational Drug Use Recreational Drug Use: No ED ROS GENERAL - Review of Systems Review Of Systems: ROS reveals no pertinent complaints other than HPI. ED EXAM, GENERAL - Physical Exam Exam: See Below (See dictation) Course - Vital Signs Last Recorded V/S: Last Vital Signs Temp Pulse 84 10/22/17 19:08 Resp 12 10/22/17 19:08 BP 117/72 10/22/17 19:08 Pulse Ox 97 10/22/17 19:08 - Orders/Labs/Meds Orders: Active Orders 24 hr Category Date Time Status Cardiac Monitoring [RC] . DIRECTED Care 10/22/17 19:50 Active EKG Documentation Completion [RC] STAT Care 10/22/17 19:50 Active Oxygen Therapy, ED [RC] ASDIRECTED Care 10/22/17 19:50 Active Pulse Oximetry [RC] ASDIRECTED Care 10/22/17 19:50 Active Chest 1V Frontal [CR] Stat Exams 10/22/17 19:51 Taken CBC WITH AUTO DIFF [HEME] Stat Lab 10/22/17 19:50 Results COMPREHENSIVE METABOLIC PN,CMP [CHEM] Stat Lab 10/22/17 19:50 Received RED BLOOD CELLS LP [BBK] Stat Lab 10/22/17 20:34 Ordered TROPONIN I [CHEM] Stat Lab 10/22/17 19:50 Received TYPE AND SCREEN [BBK] Stat Lab 10/22/17 20:10 Received Pantoprazole [ProTONIX IV] 80 mg Med 10/22/17 20:00 Active Sodium Chloride 0.9% [Normal Saline] 100 ml IV .Continuous Sodium Chloride 0.9% [Normal Saline] 1,000 ml Med 10/22/17 19:51 Active IV STAT Sodium Chloride 0.9% [Saline Flush] Med 10/22/17 19:51 Active 10 ml FLUSH ASDIRECTED PRN Sodium Chloride 0.9% [Saline Flush] Med 10/22/17 19:51 Active 2.5 ml FLUSH ASDIRECTED PRN Saline Lock Insert [OM.PC] Stat Oth 10/22/17 19:50 Ordered Transfuse PRBC [Transfuse Red Blood Cells] [COMM] Stat Oth 10/22/17 20:34 Ordered Medication Orders Sodium Chloride (Normal Saline) 1,000 mls @ 999 mls/hr IV STAT ONE Stop: 10/22/17 20:51 Last Admin: 10/22/17 20:13 Dose: 999 mls/hr Pantoprazole Sodium 80 mg/ (Sodium Chloride) 100 mls @ 10 mls/hr IV .Continuous LUIS Last Admin: 10/22/17 20:19 Dose: 10 mls/hr Sodium Chloride (Saline Flush) 10 ml FLUSH ASDIRECTED PRN PRN Reason: Keep Vein Open Last Admin: 10/22/17 20:20 Dose: 10 ml Sodium Chloride (Saline Flush) 2.5 ml FLUSH ASDIRECTED PRN PRN Reason: Keep Vein Open Last Admin: 10/22/17 20:20 Dose: 2.5 ml Labs: Laboratory Tests 10/22/17 10/22/17 10/22/17 Range/Units 19:50 19:50 19:50 WBC 13.14 H (4.0-11.0) K/uL RBC 2.30 L (4.50-5.90) M/uL Hgb 6.6 L (13.0-17.0) g/dL Hct 19.9 L (38.0-50.0) % MCV 86.5 (80.0-98.0) fL MCH 28.7 (27.0-32.0) pg MCHC 33.2 (31.0-37.0) g/dL RDW Std Deviation 58.7 (28.0-62.0) fl RDW Coeff of Tawana 21 H (11.0-15.0) % Plt Count 543 H (150-400) K/uL MPV 9.70 (7.40-12.00) fL Neut % (Auto) [place] Lymph % (Auto) [place] % (Auto) [place] Eos % (Auto) [place] Baso % (Auto) [place] Neut # (Auto) [place] Lymph # (Auto) [place] # (Auto) [place] Eos # (Auto) [place] Baso # (Auto) [place] Add Manual Diff YES Nucleated RBC % 4.7 /100WBC Nucleated RBCs # 0 K/uL INR 1.12 H (0.86-1.11) Sodium 138 (136-146) mmol/L Potassium 4.3 (3.5-5.1) mmol/L Chloride 108 (98-110) mmol/L Carbon Dioxide 25 (21-31) mmol/L BUN 23 (6.0-23.0) mg/dL Creatinine 0.7 (0.6-1.5) mg/dL Est Cr Clr Drug Dosing 128.52 mL/min Estimated GFR (MDRD) > 60.0 ml/min Glucose 158 H (60-110) mg/dL Calcium 7.9 L (8.8-10.8) mg/dL Total Bilirubin 0.2 (0.1-1.5) mg/dL AST 20 (5-40) IU/L ALT 22 (8-54) IU/L Alkaline Phosphatase 92 (40-150) Total Protein 5.3 L (6.0-8.0) g/dL Albumin 2.4 L (3.5-5.0) g/dL Globulin 2.9 (2.0-3.5) g/dL Albumin/Globulin Ratio 0.8 L (1.3-2.8) Meds: Medications Generic Name Dose Route Start Last Admin Trade Name Freq PRN Reason Stop Dose Admin Sodium Chloride 1,000 mls @ 999 mls/hr 10/22/17 19:51 10/22/17 20:13 Normal Saline IV 10/22/17 20:51 999 mls/hr STAT ONE Administration Pantoprazole Sodium 80 mg/ 100 mls @ 10 mls/hr 10/22/17 20:00 10/22/17 20:19 Sodium Chloride IV 10 mls/hr .Continuous LUIS Administration Sodium Chloride 10 ml 10/22/17 19:51 10/22/17 20:20 Saline Flush FLUSH 10 ml ASDIRECTED PRN Administration Keep Vein Open Sodium Chloride 2.5 ml 10/22/17 19:51 10/22/17 20:20 Saline Flush FLUSH 2.5 ml ASDIRECTED PRN Administration Keep Vein Open Discontinued Medications Generic Name Dose Route Start Last Admin Trade Name Madhuq PRN Reason Stop Dose Admin Pantoprazole Sodium 80 mg 10/22/17 19:51 10/22/17 20:13 Protonix Iv IVPUSH 10/22/17 19:52 80 mg .BOLUS ONE Administration Pantoprazole Sodium Confirm 10/22/17 20:02 10/22/17 20:13 Protonix Iv Administered 10/22/17 20:03 Not Given Dose 80 mg .ROUTE .STK-MED ONE Departure - Departure Time of Disposition: 20:45 Disposition: DC/Tfer to Acute Hospital 02 Condition: Good Clinical Impression: GI bleed Qualifiers: GI bleed type/associated pathology: melena Qualified Code(s): K92.1 - Melena Anemia Qualifiers: Anemia type: other cause - Discharge Information Referrals: PCP,None [Primary Care Provider] - Forms: ED Department Discharge - My Orders Last 24 Hours: My Active Orders 10/22/17 19:50 Cardiac Monitoring [RC] . DIRECTED EKG Documentation Completion [RC] STAT Oxygen Therapy, ED [RC] ASDIRECTED Pulse Oximetry [RC] ASDIRECTED CBC WITH AUTO DIFF [HEME] Stat COMPREHENSIVE METABOLIC PN,CMP [CHEM] Stat TROPONIN I [CHEM] Stat Saline Lock Insert [OM.PC] Stat 10/22/17 19:51 Chest 1V Frontal [CR] Stat Sodium Chloride 0.9% [Normal Saline] 1,000 ml IV STAT Sodium Chloride 0.9% [Saline Flush] 10 ml FLUSH ASDIRECTED PRN Sodium Chloride 0.9% [Saline Flush] 2.5 ml FLUSH ASDIRECTED PRN 10/22/17 20:00 Pantoprazole [ProTONIX IV] 80 mg Sodium Chloride 0.9% [Normal Saline] 100 ml IV .Continuous 10/22/17 20:10 TYPE AND SCREEN [BBK] Stat 10/22/17 20:34 RED BLOOD CELLS LP [BBK] Stat Transfuse PRBC [Transfuse Red Blood Cells] [COMM] Stat - Assessment/Plan Last 24 Hours: My Active Orders 10/22/17 19:50 Cardiac Monitoring [RC] . DIRECTED EKG Documentation Completion [RC] STAT Oxygen Therapy, ED [RC] ASDIRECTED Pulse Oximetry [RC] ASDIRECTED CBC WITH AUTO DIFF [HEME] Stat COMPREHENSIVE METABOLIC PN,CMP [CHEM] Stat TROPONIN I [CHEM] Stat Saline Lock Insert [OM.PC] Stat 10/22/17 19:51 Chest 1V Frontal [CR] Stat Sodium Chloride 0.9% [Normal Saline] 1,000 ml IV STAT Sodium Chloride 0.9% [Saline Flush] 10 ml FLUSH ASDIRECTED PRN Sodium Chloride 0.9% [Saline Flush] 2.5 ml FLUSH ASDIRECTED PRN 10/22/17 20:00 Pantoprazole [ProTONIX IV] 80 mg Sodium Chloride 0.9% [Normal Saline] 100 ml IV .Continuous 10/22/17 20:10 TYPE AND SCREEN [BBK] Stat 10/22/17 20:34 RED BLOOD CELLS LP [BBK] Stat Transfuse PRBC [Transfuse Red Blood Cells] [COMM] Stat
[2017-10-22] MEDS ORDERED: Pantoprazole 80 MG in Sodium Chloride 0.9% 100 ML IV SCH (20:00)
[2017-10-22] MEDS ORDERED: Pantoprazole 40 MG Vial ONE (20:02)
[2017-10-22 20:40] LABS: CHLORIDE,CL 108 mmol/L (98-110); SODIUM,NA 138 mmol/L (136-146)
--- NOTE | 2017-10-23 16:04 | CR ---
EXAM DATE: 10/22/17 PATIENT'S AGE: 57 Patient: MASHA MONTGOMERY Facility: [place], [place] Site . Site : [id number] Study: XRay Chest [id number]/[id number] 8:10:06 PM Ordering Physician: Sergio Forte Final Report: INDICATION: bloody stool TECHNIQUE: Chest 1 view. COMPARISON: None FINDINGS: Cardiovascular and mediastinum: Heart size and vasculature are normal in caliber and appearance. Mediastinum is within normal limits. Lungs and pleural space: Lungs are clear. No sign of infiltrate or mass. No sign of pleural effusion. No pneumothorax. Bones and soft tissues: No significant findings. IMPRESSION: Unremarkable chest. Dictated by: David Gage MD @ 10/22/2017 20:28:35 (Electronic Signature) Report Signed by Proxy. [facility]ITALMin
== END 2017-10-22 21:20 ==
LOC: MW.ED 18:56
DX: K92.1 Melena (principal); D63.8 Anemia in other chronic diseases classified elsewhere; Z88.0 Allergy status to penicillin
CPT/HCPCS: 36430; 71045; 80053; 84484; 85025; 85610; 86850; 86900; 86901; 86920; 86921; 86922; 93005; 96365; 96376; 99285; C9113; J2354; J7030; J7040; J7050; P9016; 99291